=== PATIENT | female | born 1955 | race Caucasian/White ===

== ENCOUNTER 2017-09-21 09:27 | Day surgery (SDC) | payer BC ==
[2017-09-16 10:22] VITALS: BMI 33.4
--- NOTE | 2017-09-21 08:57 | P.GSHP ---
History of Present Illness H&P Date: 09/21/17 CHIEF COMPLAINT: GERD HISTORY OF PRESENT ILLNESS: The patient is a 62-year-old female who presents reports gastroesophageal reflux disease. Upper endoscopy was offered for further evaluation and management. PAST MEDICAL HISTORY: Please see list. PAST SURGICAL HISTORY: Please see list. MEDICATIONS: Please see list. ALLERGIES: Please see list. SOCIAL HISTORY: No illicit drug use FAMILY HISTORY: No reports of Crohn disease or ulcerative colitis. REVIEW OF ORGAN SYSTEMS: CONSTITUTIONAL: No reports of fevers or chills. GI: Denies any blood in stools or constipation. PHYSICAL EXAM: VITAL SIGNS: Stable GENERAL: Well-developed and pleasant in no acute distress. HEENT: No scleral icterus. Extraocular movements grossly intact. Moist buccal mucosa. NECK: Supple without lymphadenopathy. CHEST: Unlabored respirations. Equal bilateral excursions. CARDIOVASCULAR: Regular rate and rhythm. Distal 2+ pulses. ABDOMEN: Soft, nondistended. MUSCULOSKELETAL: No clubbing, cyanosis, or edema. ASSESSMENT: 1. Gastroesophageal reflux disease PLAN: 1. Recommend proceeding with an upper endoscopy Past Medical History Past Medical History: Cancer, Diabetes Mellitus, GERD/Reflux, Myocardial Infarction ([place]), Osteoarthritis (OA), Thyroid Disorder Additional Past Medical History / Comment(s): hx RIght kidney cancer,hx cancerous polyps in colon, Kidney stones , enlarged heart, abdominal pain and nausea, diverticulosis, hx pancreatitis, hypoglycemia, Last Myocardial Infarction Date:: 2005 History of Any Multi-Drug Resistant Organisms: MRSA Date of last positivie culture/infection: 04/12/2015 MDRO Source:: Right Thigh Past Surgical History: Adenoidectomy, Appendectomy, Bariatric Surgery, Cholecystectomy, Hernia Repair, Hysterectomy, Joint Replacement, Tonsillectomy Additional Past Surgical History / Comment(s): partial right kidney removed 2011 , hernia x 3, Bilateral knee replacement, left hip replacement, gastric bypass, kyree carpal tunnel, kidney stone removed from left kidney Past Anesthesia/Blood Transfusion Reactions: Motion Sickness Smoking Status: Former smoker - Past Family History Son(s) Family Medical History: Cancer Sister(s) Family Medical History: Cancer, Deep Vein Thrombosis (DVT) Mother Family Medical History: Congestive Heart Failure (CHF), Diabetes Mellitus, Rheumatoid Arthritis (RA) Additional Family Medical History / Comment(s): bilateral knee replacements, back surgery, Medications and Allergies Home Medications Medication Instructions Recorded Confirmed Type Levothyroxine Sodium [Synthroid] 200 mcg PO DAILY 04/12/15 09/16/17 History Allergies Allergy/AdvReac Type Severity Reaction Status Date / Time adhesive tape Allergy blisters Verified 09/16/17 10:08 Iodine and Iodide Containing Allergy Anaphylaxis Verified 09/16/17 10:06 Produc shellfish derived [Shellfish] Allergy Anaphylaxis Verified 09/16/17 10:06 soy Allergy severe Verified 09/16/17 10:07 headache,"can't function" Fish Containing Products AdvReac headache Verified 09/16/17 10:06 magnesium AdvReac Headache Verified 09/16/17 10:06 Penicillins AdvReac Nausea & Verified 09/16/17 10:06 Vomiting & Diarrhea bandaid Allergy blisters Uncoded 09/16/17 10:07 multivitamins AdvReac headache Uncoded 09/16/17 10:06
[~2017-09-21 09:27] MED LIST: LACTATED RINGERS 1,000 ML IV SCH; LIDOCAINE 1% 20 ML VIAL (10MG/ML) FOR IV START INTRADERMA PRN
[2017-09-21 10:49] VITALS: TEMP 97.3
[2017-09-21 11:04] LABS: Glucose,Whole Blood 89 mg/dL (75-99)
[2017-09-21] MEDS ORDERED: LIDOCAINE 1% INJ 10MG/ML (20 ML MDV) ONE (11:13)
[2017-09-21] MEDS ORDERED: GLYCOPYRROLATE 0.2 MG/ML 2 ML VIAL ONE (11:13)
[2017-09-21] MEDS ORDERED: PROPOFOL 10 MG/ML 20 ML VIAL IV ONE (11:13)
--- NOTE | 2017-09-21 11:35 | P.GSHP ---
History of Present Illness H&P Date: 09/21/17 PREOPERATIVE DIAGNOSIS: Gastroesophageal reflux disease. POSTOPERATIVE DIAGNOSIS: Gastroesophageal reflux disease. OPERATION: Esophagogastroduodenoscopy with biopsies along antrum. SURGEON: Shama Taveras MD ANESTHESIA: MAC. INDICATIONS: The patient is a 62-year-old female who presents with a history of reflux disease. Benefits and risks of the procedure were described. Informed consent was obtained. DESCRIPTION: The patient was brought into the endoscopy suite and laid in the left lateral decubitus position. An Olympus gastroscope was passed along the posterior oropharynx down to the distal esophagus where the squamocolumnar junction was encountered at 38 cm from the incisors. The stomach was entered and no bile reflux was found. Additional findings are listed below. Biopsies with cold forceps were obtained of the antrum. The first through third portion of the duodenum was examined and unremarkable. Retroflexion of the scope confirmed Hill grade 2 lower esophageal valve. The squamocolumnar junction demostrated LA grade B erosive esophagitis. The stomach was desufflated. The patient tolerated the procedure well. FINDINGS: Squamocolumnar junction 38 cm from the incisors. Diaphragmatic hiatus at 38 cm. Hill grade 2 lower esophageal valve. LA grade B erosive esophagitis. No active duodenitis. Mild gastritis. RECOMMENDATIONS: Further recommendations pending results of pathology report. Upper endoscopy as needed. Past Medical History Past Medical History: Cancer, Diabetes Mellitus, GERD/Reflux, Myocardial Infarction ([place]), Osteoarthritis (OA), Thyroid Disorder Additional Past Medical History / Comment(s): hx RIght kidney cancer,hx cancerous polyps in colon, Kidney stones , enlarged heart, abdominal pain and nausea, diverticulosis, hx pancreatitis, hypoglycemia, Last Myocardial Infarction Date:: 2005 History of Any Multi-Drug Resistant Organisms: MRSA Date of last positivie culture/infection: 04/12/2015 MDRO Source:: Right Thigh Past Surgical History: Adenoidectomy, Appendectomy, Bariatric Surgery, Cholecystectomy, Hernia Repair, Hysterectomy, Joint Replacement, Tonsillectomy Additional Past Surgical History / Comment(s): partial right kidney removed 2011 , hernia x 3, Bilateral knee replacement, left hip replacement, gastric bypass, kyree carpal tunnel, kidney stone removed from left kidney Past Anesthesia/Blood Transfusion Reactions: Motion Sickness Smoking Status: Former smoker - Past Family History Son(s) Family Medical History: Cancer Sister(s) Family Medical History: Cancer, Deep Vein Thrombosis (DVT) Mother Family Medical History: Congestive Heart Failure (CHF), Diabetes Mellitus, Rheumatoid Arthritis (RA) Additional Family Medical History / Comment(s): bilateral knee replacements, back surgery, Medications and Allergies Home Medications Medication Instructions Recorded Confirmed Type Levothyroxine Sodium [Synthroid] 200 mcg PO DAILY 04/12/15 09/16/17 History Allergies Allergy/AdvReac Type Severity Reaction Status Date / Time adhesive tape Allergy blisters Verified 09/21/17 10:37 Iodine and Iodide Containing Allergy Anaphylaxis Verified 09/21/17 10:37 Produc shellfish derived [Shellfish] Allergy Anaphylaxis Verified 09/21/17 10:37 soy Allergy severe Verified 09/21/17 10:37 headache,"can't function" Fish Containing Products AdvReac headache Verified 09/21/17 10:37 magnesium AdvReac Headache Verified 09/21/17 10:37 Penicillins AdvReac Nausea & Verified 09/21/17 10:37 Vomiting & Diarrhea bandaid Allergy blisters Uncoded 09/21/17 10:37 multivitamins AdvReac headache Uncoded 09/21/17 10:37 Surgical - Exam Vital Signs Temp Pulse Resp BP Pulse Ox 97.3 F L 69 16 163/81 99 09/21/17 10:47 09/21/17 10:47 09/21/17 10:47 09/21/17 10:47 09/21/17 10:47
[2017-09-21 11:48] VITALS: BP 157/79; PULSE 69; RESP 16
== END 2017-09-21 11:56 | disposition home or self-care (01) ==
LOC: ORWHC2ENDO 09:27
PROVIDERS: ATTEND Surgery Plastic and Reconstructive Surgery
DX: K22.10 Ulcer of esophagus without bleeding (principal); K29.50 Unspecified chronic gastritis without bleeding; E07.9 Disorder of thyroid, unspecified; Z85.038 Personal history of other malignant neoplasm of large intestine; Z87.442 Personal history of urinary calculi; Z87.891 Personal history of nicotine dependence; Z85.528 Personal history of other malignant neoplasm of kidney; Z98.84 Bariatric surgery status; M19.90 Unspecified osteoarthritis, unspecified site; I25.2 Old myocardial infarction; Z79.899 Other long term (current) drug therapy; Z91.041 Radiographic dye allergy status; Z88.0 Allergy status to penicillin; Z91.013 Allergy to seafood; Z91.09 Other allergy status, other than to drugs and biological substances
CPT/HCPCS: 88305; 88342; 43239; J2001; J2704

== ENCOUNTER 2019-01-25 17:01 | Observation (INO) | payer BC, MEDICARE ==
[2019-01-25] MEDS ORDERED: NITROGLYCERIN OINT 1 INCH/GM PACKET TOPICAL STA (17:30)
[2019-01-25] MEDS ORDERED: ASPIRIN 81 MG PO STA (17:30)
--- NOTE | 2019-01-25 17:33 | ED ---
General Adult HPI - General Chief complaint: Chest Pain Stated complaint: chest pain Time Seen by Provider: 01/25/19 17:05 Source: patient, RN notes reviewed Mode of arrival: ambulatory Limitations: no limitations - History of Present Illness Initial comments: This is a 63-year-old female presents emergency room stating she had a heart attack in the past. Patient states she comes in today because she's had chest pain since chest area radiates into her back and down her left arm. Patient states also is made her very short of breath and nauseated at times. Patient states currently the chest pain is ongoing she states nothing makes it better or worse.. Patient denies any recent fever chills or cough. Patient denies any swelling to legs or calf tenderness. Patient denies any abdominal pain patient denies nausea vomiting diarrhea. - Related Data Home Medications Medication Instructions Recorded Confirmed Levothyroxine Sodium [Synthroid] 200 mcg PO DAILY 04/12/15 01/25/19 Aspirin 81 mg PO DAILY 01/25/19 01/25/19 Multivitamins, Thera [Multivitamin 1 tab PO DAILY 01/25/19 01/25/19 (formulary)] Allergies Allergy/AdvReac Type Severity Reaction Status Date / Time adhesive tape Allergy blisters Verified 01/25/19 17:18 Iodine and Iodide Containing Allergy Anaphylaxis Verified 01/25/19 17:18 Produc shellfish derived [Shellfish] Allergy Anaphylaxis Verified 01/25/19 17:18 soy Allergy severe Verified 01/25/19 17:18 headache,"can't function" Fish Containing Products AdvReac headache Verified 01/25/19 17:18 magnesium AdvReac Headache Verified 01/25/19 17:18 Penicillins AdvReac Nausea & Verified 01/25/19 17:18 Vomiting & Diarrhea bandaid Allergy blisters Uncoded 01/25/19 17:05 multivitamins AdvReac headache Uncoded 01/25/19 17:05 Review of Systems ROS Statement: Those systems with pertinent positive or pertinent negative responses have been documented in the HPI. ROS Other: All systems not noted in ROS Statement are negative. Past Medical History Past Medical History: Cancer, Diabetes Mellitus, GERD/Reflux, Myocardial Infarction ([place]), Osteoarthritis (OA), Thyroid Disorder Additional Past Medical History / Comment(s): hx RIght kidney cancer,hx cancerous polyps in colon, Kidney stones , enlarged heart, diverticulosis, hx pancreatitis,hypoglycemia Last Myocardial Infarction Date:: 2005 History of Any Multi-Drug Resistant Organisms: MRSA Date of last positivie culture/infection: 04/12/2015 MDRO Source:: Right Thigh Past Surgical History: Adenoidectomy, Appendectomy, Bariatric Surgery, Cholecystectomy, Hernia Repair, Hysterectomy, Joint Replacement, Tonsillectomy Additional Past Surgical History / Comment(s): partial right kidney removed 2011, hernia x 3, Bilateral knee replacement, left hip replacement, gastric bypass, kyree carpal tunnel, kidney stone removed from left kidney Past Anesthesia/Blood Transfusion Reactions: Motion Sickness Past Psychological History: No Psychological Hx Reported Smoking Status: Former smoker Past Alcohol Use History: None Reported Past Drug Use History: None Reported - Past Family History Son(s) Family Medical History: Cancer Sister(s) Family Medical History: Cancer, Deep Vein Thrombosis (DVT) Mother Family Medical History: Congestive Heart Failure (CHF), Diabetes Mellitus, Rheumatoid Arthritis (RA) Additional Family Medical History / Comment(s): bilateral knee replacements, back surgery, General Exam - General Exam Comments Initial Comments: GENERAL: Patient is well-developed and well-nourished. Patient is nontoxic and well- hydrated and is in mild distress. ENT: Neck is soft and supple. No significant lymphadenopathy is noted. Oropharynx is clear. Moist mucous membranes. Neck has full range of motion without eliciting any pain. EYES: The sclera were anicteric and conjunctiva were pink and moist. Extraocular mo vements were intact and pupils were equal round and reactive to light. Eyelids were unremarkable. PULMONARY: Unlabored respirations. Good breath sounds bilaterally. No audible rales rhonchi or wheezing was noted. CARDIOVASCULAR: There is a regular rate and rhythm without any murmurs gallops or rubs. ABDOMEN: Soft and nontender with normal bowel sounds. No palpable organomegaly was noted. There is no palpable pulsatile mass. SKIN: Skin is clear with no lesions or rashes and otherwise unremarkable. NEUROLOGIC: Patient is alert and oriented x3. Cranial nerves II through XII are grossly intact. Motor and sensory are also intact. Normal speech, volume and content. Symmetrical smile. MUSCULOSKELETAL: Normal extremities with adequate strength and full range of motion. No lower ex tremity swelling or edema. No calf tenderness. LYMPHATICS: No significant lymphadenopathy is noted PSYCHIATRIC: Normal psychiatric evaluation. Limitations: no limitations Course Vital Signs 01/25/19 17:02 Temperature 98.4 F Pulse Rate 83 Respiratory 16 Rate Blood Pressure 138/70 O2 Sat by Pulse 99 Oximetry Medical Decision Making - Medical Decision Making EKG shows normal sinus rhythm at 75 bpm AL interval is 170 QRS is under 10 Q-T intervals 398 QTC is 444. Patient's EKG shows no ST segment elevation or depression. Chest x-ray shows no acute abnormality. I spoke with some physicians agreed to admit the patient admitted the patient I consult cardiology I wrote admitting orders. - Lab Data Result diagrams: 01/25/19 17:45 01/25/19 17:45 Lab Results 01/25/19 01/25/19 01/25/19 Range/Units 17:45 17:45 17:45 WBC 7.7 (3.8-10.6) k/uL RBC 4.48 (3.80-5.40) m/uL Hgb 12.8 (11.4-16.0) gm/dL Hct 39.1 (34.0-46.0) % MCV 87.3 (80.0-100.0) fL MCH 28.5 (25.0-35.0) pg MCHC 32.6 (31.0-37.0) g/dL RDW 13.3 (11.5-15.5) % Plt Count 297 (150-450) k/uL Neutrophils % 64 % Lymphocytes % 28 % Monocytes % 5 % Eosinophils % 2 % Basophils % 0 % Neutrophils # 4.9 (1.3-7.7) k/uL Lymphocytes # 2.1 (1.0-4.8) k/uL Monocytes # 0.4 (0-1.0) k/uL Eosinophils # 0.2 (0-0.7) k/uL Basophils # 0.0 (0-0.2) k/uL PT 9.5 (9.0-12.0) sec INR 0.9 (<1.2) APTT 22.5 (22.0-30.0) sec Sodium 140 (137-145) mmol/L Potassium 3.9 (3.5-5.1) mmol/L Chloride 109 H (98-107) mmol/L Carbon Dioxide 25 (22-30) mmol/L Anion Gap 6 mmol/L BUN 18 H (7-17) mg/dL Creatinine 0.63 (0.52-1.04) mg/dL Est GFR (CKD-EPI)AfAm >90 (>60 ml/min/1.73 sqM) Est GFR (CKD-EPI)NonAf >90 (>60 ml/min/1.73 sqM) Glucose 105 H (74-99) mg/dL Calcium 9.6 (8.4-10.2) mg/dL Magnesium 1.7 (1.6-2.3) mg/dL Total Bilirubin 0.3 (0.2-1.3) mg/dL AST 18 (14-36) U/L ALT 32 (9-52) U/L Alkaline Phosphatase 79 (38-126) U/L Troponin I (0.000-0.034) ng/mL Total Protein 6.4 (6.3-8.2) g/dL Albumin 3.8 (3.5-5.0) g/dL 01/25/19 Range/Units 17:45 WBC (3.8-10.6) k/uL RBC (3.80-5.40) m/uL Hgb (11.4-16.0) gm/dL Hct (34.0-46.0) % MCV (80.0-100.0) fL MCH (25.0-35.0) pg MCHC (31.0-37.0) g/dL RDW (11.5-15.5) % Plt Count (150-450) k/uL Neutrophils % % Lymphocytes % % Monocytes % % Eosinophils % % Basophils % % Neutrophils # (1.3-7.7) k/uL Lymphocytes # (1.0-4.8) k/uL Monocytes # (0-1.0) k/uL Eosinophils # (0-0.7) k/uL Basophils # (0-0.2) k/uL PT (9.0-12.0) sec INR (<1.2) APTT (22.0-30.0) sec Sodium (137-145) mmol/L Potassium (3.5-5.1) mmol/L Chloride (98-107) mmol/L Carbon Dioxide (22-30) mmol/L Anion Gap mmol/L BUN (7-17) mg/dL Creatinine (0.52-1.04) mg/dL Est GFR (CKD-EPI)AfAm (>60 ml/min/1.73 sqM) Est GFR (CKD-EPI)NonAf (>60 ml/min/1.73 sqM) Glucose (74-99) mg/dL Calcium (8.4-10.2) mg/dL Magnesium (1.6-2.3) mg/dL Total Bilirubin (0.2-1.3) mg/dL AST (14-36) U/L ALT (9-52) U/L Alkaline Phosphatase (38-126) U/L Troponin I <0.012 (0.000-0.034) ng/mL Total Protein (6.3-8.2) g/dL Albumin (3.5-5.0) g/dL Disposition Clinical Impression: Chest pain Disposition: ADMITTED IP TO THIS HOSP Referrals: Jovanny Leonard MD [Primary Care Provider] - 1-2 days Time of Disposition: 18:28
[2019-01-25 18:05] LABS: INR 0.9 (<1.2); Partial Thromboplastin Time 22.5 sec (22.0-30.0); Prothrombin Time 9.5 sec (9.0-12.0)
[2019-01-25 18:07] LABS: ALT 32 U/L (9-52); AST 18 U/L (14-36); Albumin 3.8 g/dL (3.5-5.0); Alkaline Phosphatase 79 U/L (38-126); Anion Gap 6 mmol/L; Blood Urea Nitrogen 18 mg/dL (7-17); Calcium 9.6 mg/dL (8.4-10.2); Carbon Dioxide 25 mmol/L (22-30); Chloride 109 mmol/L (98-107); Glucose 105 mg/dL (74-99); Magnesium 1.7 mg/dL (1.6-2.3); Potassium 3.9 mmol/L (3.5-5.1); Sodium 140 mmol/L (137-145); Total Bilirubin 0.3 mg/dL (0.2-1.3); Total Protein 6.4 g/dL (6.3-8.2)
[2019-01-25 18:10] LABS: Basophils % (A) 0 %; Eosinophils # (A) 0.2 k/uL (0-0.7); Eosinophils % (A) 2 %; HCT 39.1 % (34.0-46.0); HGB 12.8 gm/dL (11.4-16.0); Lymphocytes # (A) 2.1 k/uL (1.0-4.8); Lymphocytes % (A) 28 %; MCH 28.5 pg (25.0-35.0); MCHC 32.6 g/dL (31.0-37.0); MCV 87.3 fL (80.0-100.0); Mean Platelet Volume 6.2; Monocytes # (A) 0.4 k/uL (0-1.0); Monocytes % (A) 5 %; Neutrophils # (A) 4.9 k/uL (1.3-7.7); Neutrophils % (A) 64 %; Platelet Count 297 k/uL (150-450); RBC 4.48 m/uL (3.80-5.40); RDW 13.3 % (11.5-15.5); WBC 7.7 k/uL (3.8-10.6)
--- NOTE | 2019-01-25 18:21 | XR ---
EXAMINATION TYPE: XR chest 2V DATE OF EXAM: 01/25/2019 COMPARISON: 05/05/2013 HISTORY: Chest pain TECHNIQUE: Frontal and lateral views of the chest are obtained. FINDINGS: Heart and mediastinum are normal. There is minimal linear poorly marginated density in the left lower lung field.. There are no hilar masses. Bony thorax is intact. There are chest leads. IMPRESSION: There is minimal density left lower lung field that is mostly cleared compared to old ex am. This probably relates to scarring.
[2019-01-25] MEDS ORDERED: NITROGLYCERIN SL TABS 0.4 MG TAB SUBLINGUAL PRN (18:28)
--- NOTE | 2019-01-25 21:24 | P.HPIM ---
History of Present Illness H&P Date: 01/25/19 Chief Complaint: Chest pain The patient is a 63-year-old female with a past medical history of hypothyroidism, reported prior [place] in 2005 who presents to the ER via private vehicle with her with chief complaint of chest pain. Apparently the patient has been having left sternal severe chest pressure and tightness over the last 2 days, she reports that it's worse with exertion and reports associated shortness of breath with radiation into her back and down her left arm. She reports episodes of diaphoresis and nausea and mention some lower extremity swelling. The patient reports following up with her PCP Dr. Parnell and reports that she was then referred to the ER here. The patient reports that in 2005 she was diagnosed with [place] while following up with her PCP and was sent directly to a nearby hospital where she had a cath done. The patient is unable to fully recall that she knows that she did not have any stent placement that time, and she is also unsure about whether she was noted to have any coronary artery disease. When asked about specific medications she reports a long list of ALLERGIES to medications over the years but is unable to recall specific ALLERGIES to specific medications. The patient denies any recent illness but does report that she's been following up with her PCP due to concern for CVA as she has been having focal weakness on her left side, apparently she was referred to see neurology Dr. Good who is currently planning to work her up with several studies including MRI of the head. In the ER the patient had a conference of workup, EKG showed sinus rhythm without any suggestion of an acute ischemia, troponin was less than 0.012 and chest x-ray showed no acute abnormalityShe was started on aspirin and nit roglycerin and recommended for admission to rule out ACS . Review of Systems The pertinent positives per HPI all other systems otherwise negative Past Medical History Past Medical History: Cancer, Diabetes Mellitus, GERD/Reflux, Myocardial Infarction ([place]), Osteoarthritis (OA), Thyroid Disorder Additional Past Medical History / Comment(s): hx RIght kidney cancer,hx cancerous polyps in colon, Kidney stones , enlarged heart, diverticulosis, hx pancreatitis,hypoglycemia Last Myocardial Infarction Date:: 2005 History of Any Multi-Drug Resistant Organisms: MRSA Date of last positivie culture/infection: 04/12/2015 MDRO Source:: Right Thigh Past Surgical History: Adenoidectomy, Appendectomy, Bariatric Surgery, Cholecystectomy, Hernia Repair, Hysterectomy, Joint Replacement, Tonsillectomy Additional Past Surgical History / Comment(s): partial right kidney removed 2011, hernia x 3, Bilateral knee replacement, left hip replacement, gastric bypass, kyree carpal tunnel, kidney stone removed from left kidney Past Anesthesia/Blood Transfusion Reactions: Motion Sickness Past Psychological History: No Psychological Hx Reported Smoking Status: Former smoker Past Alcohol Use History: None Reported Past Drug Use History: None Reported - Past Family History Son(s) Family Medical History: Cancer Sister(s) Family Medical History: Cancer, Deep Vein Thrombosis (DVT) Mother Family Medical History: Congestive Heart Failure (CHF), Diabetes Mellitus, Rheumatoid Arthritis (RA) Additional Family Medical History / Comment(s): bilateral knee replacements, back surgery, Medications and Allergies Home Medications Medication Instructions Recorded Confirmed Type Levothyroxine Sodium [Synthroid] 200 mcg PO DAILY 04/12/15 01/25/19 History Aspirin 81 mg PO DAILY 01/25/19 01/25/19 History Multivitamins, Thera [Multivitamin 1 tab PO DAILY 01/25/19 01/25/19 History (formulary)] Allergies Allergy/AdvReac Type Severity Reaction Status Date / Time adhesive tape Allergy blisters Verified 01/25/19 20:54 Iodine and Iodide Containing Allergy Anaphylaxis Verified 01/25/19 20:54 Produc shellfish derived [Shellfish] Allergy Anaphylaxis Verified 01/25/19 20:54 soy Allergy severe Verified 01/25/19 20:54 headache,"can't function" Fish Containing Products AdvReac headache Verified 01/25/19 20:54 magnesium AdvReac Headache Verified 01/25/19 20:54 Penicillins AdvReac Nausea & Verified 01/25/19 20:54 Vomiting & Diarrhea bandaid Allergy blisters Uncoded 01/25/19 20:54 multivitamins AdvReac headache Uncoded 01/25/19 20:54 Physical Exam Vitals: Vital Signs Temp Pulse Resp BP Pulse Ox 01/25/19 19:44 100 01/25/19 18:46 73 16 157/90 98 01/25/19 17:02 98.4 F 83 16 138/70 99 Intake and Output 01/25/19 01/25/19 01/25/19 06:59 14:59 22:59 Other: # Voids 1 Weight 77.111 kg Results CBC & Chem 7: 01/25/19 17:45 01/25/19 17:45 Labs: Abnormal Lab Results - Last 24 Hours (Table) 01/25/19 Range/Units 17:45 Chloride 109 H (98-107) mmol/L BUN 18 H (7-17) mg/dL Glucose 105 H (74-99) mg/dL Assessment and Plan (1) Chest pain Current Visit: Yes Status: Acute Code(s): R07.9 - CHEST PAIN, UNSPECIFIED SNOMED Code(s): 93245300 (2) Essential hypertension Current Visit: Yes Status: Acute Code(s): I10 - ESSENTIAL (PRIMARY) HYPERTENSION SNOMED Code(s): 79326494 (3) Hypothyroidism Current Visit: Yes Status: Acute Code(s): E03.9 - HYPOTHYROIDISM, UNSPECIFIED SNOMED Code(s): 06763781 Plan: the patient isin observation anticipated less than 2 midnight stay with chest pain, she apparently has a history of previous [place] unsure of whether she has coronary artery disease, patient's blood pressure slightly elevated, however her workup so far has been negative. Her troponin is less than 0.012 and her EKG is negative for acute ischemia, we'll plan to order echocardiogram with Doppler, cycle her troponins, check a lipid panel and consult cardiology for further recommendations. We'll add Coreg and aspirin and nitroglycerin and continue routine chest pain orders and continue to follow her clinical course CODE STATUS: Full code Discussed plan of care with; patient and her Prophylaxis: SCDs and Lovenox Anticipated discharge: 1 day
[2019-01-25] MEDS: CARVEDILOL 3.125 MG TAB PO SCH (21:45)
[2019-01-25] MEDS: HYDROcodone/APAP 5-325MG 1 EACH TAB PO PRN (21:46)
[2019-01-26] MEDS: NITROGLYCERIN OINT 1 INCH/GM PACKET TOPICAL SCH ×5 (00:08→23:36)
[2019-01-26] MEDS: LEVOTHYROXINE 100 MCG TAB PO SCH (05:24)
[2019-01-26] MEDS: HYDROcodone/APAP 5-325MG 1 EACH TAB PO PRN ×3 (05:28→19:02)
[2019-01-26 07:02] LABS: Cholesterol 152 mg/dL (<200); HDL Cholesterol 53 mg/dL (40-60); LDL Cholesterol,Calculated 48 mg/dL (0-99); Triglycerides 255 mg/dL (<150)
[2019-01-26] MEDS ORDERED: ALPRAZolam 0.25 MG TAB PO PRN (11:39)
[2019-01-26] MEDS ORDERED: SODIUM CHLORIDE 0.9% 1,000 ML in EMPTY BAG 1 BAG IV ONE (11:39)
[2019-01-26] MEDS ORDERED: ATORVASTATIN 80 MG TAB PO STA (11:39)
[2019-01-26] MEDS ORDERED: ALPRAZolam 0.5 MG TAB PO PRN (11:39)
[2019-01-26] MEDS: MULTIVITAMINS, THERA 1 EACH TAB PO SCH (12:05)
[2019-01-26] MEDS: CARVEDILOL 3.125 MG TAB PO SCH ×2 (12:06→19:01)
[2019-01-26] MEDS: ASPIRIN 325 MG TAB PO SCH (12:06)
[2019-01-26] MEDS ORDERED: diphenhydrAMINE 50 MG/ML 1 ML VIAL IVP ONE (12:44)
[2019-01-26] MEDS ORDERED: methylPREDNISolone SOD SUCCI 125 MG/2 ML VIAL IV ONE (12:44)
[2019-01-26] MEDS ORDERED: ASPIRIN 81 MG ONE (12:51)
[2019-01-26] MEDS ORDERED: methylPREDNISolone SOD SUCCI 125 MG/2 ML VIAL ONE (12:51)
[2019-01-26] MEDS ORDERED: LIDOCAINE 1% INJ 10MG/ML (20 ML MDV) ONE (12:51)
[2019-01-26] MEDS ORDERED: SODIUM CHLORIDE 0.9% 1,000 ML IV ONE (12:59)
[2019-01-26] MEDS ORDERED: fentaNYL (PF) 50 MCG/ML 2 ML AMP ONE (13:09)
[2019-01-26] MEDS ORDERED: MIDAZOLAM 2 MG/2 ML VIAL IVP ONE (13:20)
[2019-01-26] MEDS ORDERED: fentaNYL (PF) 50 MCG/ML 2 ML AMP IVP ONE (13:20)
[2019-01-26] MEDS ORDERED: LIDOCAINE 1% INJ 10MG/ML (20 ML MDV) SQ ONE (13:24)
--- NOTE | 2019-01-26 13:29 | ECHOF ---
Referral Reason:Chest pain MEASUREMENTS -------- HEIGHT: 154.9 cm WEIGHT: 77.1 kg BP: 121/69 RVIDd: 2.7 cm (< 3.3) IVSd: 1.1 cm (0.6 - 1.1) LVIDd: 4.8 cm (3.9 - 5.3) LVPWd: 1.2 cm (0.6 - 1.1) IVSs: 1.6 cm LVIDs: 3.0 cm LVPWs: 1.8 cm LA Diam: 3.4 cm (2.7 - 3.8) LAESV Index (A-L): 24.20 ml/m Ao Diam: 2.9 cm (2.0 - 3.7) AV Cusp: 1.5 cm (1.5 - 2.6) MV EXCURSION: 19.436 mm (> 18.000) MV EF SLOPE: 51 mm/s (70 - 150) EPSS: 0.4 cm MV E Imtiaz: 1.02 m/s MV DecT: 232 ms MV A Imtiaz: 1.03 m/s MV E/A Ratio: 0.99 AV maxP.00 mmHg AV meanP.42 mmHg RAP: 5.00 mmHg RVSP: 25.25 mmHg FINDINGS -------- Sinus rhythm. This was a technically good study. The left ventricular size is normal. There is borderline concentric left ventricular hypertrophy. Overall left ventricular systolic function is normal with, an EF between 60 - 65 %. The right ventricle is normal in size. Normal LA size by volume 22+/-6 ml/m2. The right atrium is normal in size. Aortic valve is trileaflet and is mildly thickened. The aortic valve is bicuspid. There is mild a ortic stenosis present. The mitral valve leaflets are mildly thickened. Mild mitral annular calcification present. There is trace mitral regurgitation. Mild tricuspid regurgitation present. Right ventricular systolic pressure is normal at < 35 mmHg. There is no pulmonic regurgitation present. The aortic root size is normal. Normal inferior vena cava with normal inspiratory collapse consistent with estimated right atrial pre ssure of 5 mmHg. There is no pericardial effusion. CONCLUSIONS -------- 1. Sinus rhythm. 2. This was a technically good study. 3. The left ventricular size is normal. 4. There is borderline concentric left ventricular hypertrophy. 5. Overall left ventricular systolic function is normal with, an EF between 60 - 65 %. 6. The right ventricle is normal in size. 7. Normal LA size by volume 22+/-6 ml/m2. 8. The right atrium is normal in size. 9. Aortic valve is trileaflet and is mildly thickened. 10. The aortic valve is bicuspid. 11. There is mild aortic stenosis present. 12. The mitral valve leaflets are mildly thickened. 13. Mild mitral annular calcification present. 14. There is trace mitral regurgitation. 15. Mild tricuspid regurgitation present. 16. Right ventricular systolic pressure is normal at < 35 mmHg. 17. There is no pulmonic regurgitation present. 18. The aortic root size is normal. 19. Normal inferior vena cava with normal inspiratory collapse consistent with estimated right atrial pressure of 5 mmHg. 20. There is no pericardial effusion. BINMAN: Fanny Evans RDCS
[2019-01-26] MEDS ORDERED: NITROGLYCERIN SL TABS 0.4 MG TAB SUBLINGUAL ONE ×2 (13:44→13:45)
[2019-01-26] MEDS ORDERED: METOPROLOL TARTRATE 5 MG/5 ML VIAL IVP ONE ×2 (13:45→13:47)
[2019-01-26] MEDS ORDERED: IOPAMIDOL-370 150ML BTL INJ ONE (13:49)
[2019-01-26] MEDS ORDERED: RX INFO: IV CONTRAST WAS GIVEN 1 EACH MISC MISCELLANE PRN (13:53)
--- NOTE | 2019-01-26 13:55 | P.CRDCN ---
History of Present Illness History of present illness: couple days of pressure and stabbing pain in the left precordial region with radiation down the left arm. sob, nausea, dizziness. This is a pleasant 63-year-old female past medical history significant for diabetes mellitus, gastroesophageal reflux disease, hypothyroidism, former nicotine dependence the patient states she suffered a myocardial infarction in [place] in 2005 undergoing cardiac catheterization but requiring no stent placement. We have been asked to see her in consultation for symptoms of chest discomfort. She describes having symptoms of chest pressure and a stabbing pain in the left precordial region intermittently over the previous couple of days not associated with activity or exertion. There is some radiation into the left shoulder and down the left arm. When she has the pain she also feels significantly short of breath, nauseated and lightheaded. She denies any palpitations. The pain is quite intense when it does come and is not associated with cough or deep inspiration. At the time of my exam she is initially seen and examined resting quite comfortably in bed in no acute distress however shelter through my examination she had an episode of acute onset of chest discomfort heavy pressure stabbing sensation in the left precordial region causing her clutch her chest. EKG reveals sinus mechanism heart rate of 75, left axis deviation, incomplete right bundle branch block as well as nonspecific ST abnormalities noted in the inferior leads. Chest x-ray reveals minimal density in the left lower lung field. Laboratory data reviewed, WBC 7.7, hemoglobin 12.8, platelets 297, sodium 140, potassium 3.9, creatinine 0.63, magnesium 1.7, cardiac enzymes negative 3, LDL 48 HDL 53. She takes no daily cardiac medications. At the time of my exam: CONSTITUTIONAL: Denies fever. Denies chills. EYES: Denies blurred vision. Denies vision changes. Denies eye pain. EARS, NOSE, MOUTH & THROAT: Denies headache. Denies sore throat. Denies ear p ain. CARDIOVASCULAR: Complains of chest pain. Denies shortness of breath. Denies orthopnea. Denies PND. Denies palpitations. RESPIRATORY: Denies cough. GASTROINTESTINAL: Denies abdominal pain. Denies diarrhea. Denies constipation. Denies nausea. Denies vomiting. MUSCULOSKELETAL: Denies myalgias. INTEGUMENTARY: Denies pruitis. Denies rash. NEUROLOGIC: Denies numbness. Denies tingling. Denies weakness. PSYCHIATRIC: Denies anxiety. Denies depression. ENDOCRINE: Denies fatigue. Denies weight change. Denies polydipsia. Denies polyurina. GENITOURINARY: Denies burning, hematuria or urgency with micturation. HEMATOLOGIC: Denies history of anemia. Denies bleeding. Blood pressure 118/69 heart rate 63 afebrile maintaining oxygen saturation on room air GENERAL: This is a 63-year-old female in no apparent distress at the time of my examination. HEENT: Head is atraumatic, normocephalic. Pupils are equal, round. Sclerae anicteric. Conjunctivae are clear. Mucous membranes of the mouth are moist. Neck is supple. There is no jugular venous distention. No carotid bruit is heard. LUNGS: Clear to auscultation no wheezes, rales or rhonchi. No chest wall tenderness is noted on palpation or with deep breathing. HEART: Regular rate and rhythm with short systolic murmur at the left sternal kylie rder, no rubs or gallops. S1 and S2 heard. ABDOMEN: Soft, nontender. Bowel sounds are heard. No organomegaly noted. EXTREMITIES: No evidence of peripheral edema and no calf tenderness noted. VASCULAR: Radial and dorsalis pedis pulses palpated, no evidence of clubbing. NEUROLOGIC: Patient is awake, alert and oriented x3. ASSESSMENT Chest pain, ongoing with baseline EKG abnormalities. An acute coronary event has been ruled out with negative cardiac enzymes. Hypothyroidism Former nicotine dependence Obesity, BMI 32 PLAN Obtain 2-D echocardiogram and Doppler study to assess cardiac structure and function. Due to her ongoing active chest discomfort and EKG abnormalities recommend proceeding with cardiac catheterization to further assess the coronary arteries. I have discussed the risks, benefits and alternative therapies for the above- mentioned procedure and for both sedation/analgesia as well as necessary blood product administration, if indicated, as they pertain to this patient. The patient has indicated understanding and acceptance of the risks and procedures discussed. Questions have been answered appropriately and she is agreeable to move forward with the above-stated procedure. Further recommendations to follow based upon clinical course. Thank you kindly for this consultation. Nurse Practitioner note has been reviewed, I agree with a documented findings and plan of care. Patient was seen and examined. Past Medical History Past Medical History: Cancer, Diabetes Mellitus, GERD/Reflux, Myocardial Infarction ([place]), Osteoarthritis (OA), Thyroid Disorder Additional Past Medical History / Comment(s): hx RIght kidney cancer,hx cancerous polyps in colon, Kidney stones , enlarged heart, diverticulosis, hx pancreatitis,hypoglycemia Last Myocardial Infarction Date:: 2005 History of Any Multi-Drug Resistant Organisms: MRSA Date of last positivie culture/infection: 04/12/2015 MDRO Source:: Right Thigh Past Surgical History: Adenoidectomy, Appendectomy, Bariatric Surgery, Cholec ystectomy, Hernia Repair, Hysterectomy, Joint Replacement, Tonsillectomy Additional Past Surgical History / Comment(s): partial right kidney removed 2011, hernia x 3, Bilateral knee replacement, left hip replacement, gastric bypass, kyree carpal tunnel, kidney stone removed from left kidney Past Anesthesia/Blood Transfusion Reactions: Motion Sickness Past Psychological History: No Psychological Hx Reported Smoking Status: Former smoker Past Alcohol Use History: None Reported Past Drug Use History: None Reported - Past Family History Son(s) Family Medical History: Cancer Sister(s) Family Medical History: Cancer, Deep Vein Thrombosis (DVT) Mother Family Medical History: Congestive Heart Failure (CHF), Diabetes Mellitus, Rheumatoid Arthritis (RA) Additional Family Medical History / Comment(s): bilateral knee replacements, back surgery, Medications and Allergies Home Medications Medication Instructions Recorded Confirmed Type Levothyroxine Sodium [Synthroid] 200 mcg PO DAILY 04/12/15 01/25/19 History Aspirin 81 mg PO DAILY 01/25/19 01/25/19 History Multivitamins, Thera [Multivitamin 1 tab PO DAILY 01/25/19 01/25/19 History (formulary)] Allergies Allergy/AdvReac Type Severity Reaction Status Date / Time adhesive tape Allergy blisters Verified 01/25/19 20:54 Iodine and Iodide Containing Allergy Anaphylaxis Verified 01/25/19 20:54 Produc shellfish derived [Shellfish] Allergy Anaphylaxis Verified 01/25/19 20:54 soy Allergy severe Verified 01/25/19 20:54 headache,"can't function" Fish Containing Products AdvReac headache Verified 01/25/19 20:54 magnesium AdvReac Headache Verified 01/25/19 20:54 Penicillins AdvReac Nausea & Verified 01/25/19 20:54 Vomiting & Diarrhea bandaid Allergy blisters Uncoded 01/25/19 20:54 multivitamins AdvReac headache Uncoded 01/25/19 20:54 Physical Exam Vitals: Vital Signs Temp Pulse Pulse Resp BP BP Pulse Ox 01/26/19 07:20 97.8 F 63 18 118/69 97 01/26/19 03:49 98.3 F 70 16 121/69 99 01/26/19 03:21 16 01/25/19 23:58 16 01/25/19 23:24 98.2 F 75 16 123/69 96 01/25/19 20:00 98.4 F 74 16 147/73 98 01/25/19 19:44 100 01/25/19 18:46 73 16 157/90 98 01/25/19 17:02 98.4 F 83 16 138/70 99 Intake and Output 01/25/19 01/26/19 01/26/19 22:59 06:59 14:59 Other: # Voids 1 1 Weight 77.111 kg Results 01/25/19 17:45 01/25/19 17:45 Cardiac Enzymes 01/25/19 01/25/19 01/25/19 Range/Units 17:45 17:45 23:41 AST 18 (14-36) U/L Troponin I <0.012 0.014 (0.000-0.034) ng/mL 01/26/19 Range/Units 05:35 AST (14-36) U/L Troponin I <0.012 (0.000-0.034) ng/mL Coagulation 01/25/19 Range/Units 17:45 PT 9.5 (9.0-12.0) sec APTT 22.5 (22.0-30.0) sec Lipids 01/26/19 Range/Units 05:35 Triglycerides 255 H (<150) mg/dL Cholesterol 152 (<200) mg/dL HDL Cholesterol 53 (40-60) mg/dL CBC 01/25/19 Range/Units 17:45 WBC 7.7 (3.8-10.6) k/uL RBC 4.48 (3.80-5.40) m/uL Hgb 12.8 (11.4-16.0) gm/dL Hct 39.1 (34.0-46.0) % Plt Count 297 (150-450) k/uL Comprehensive Metabolic Panel 01/25/19 Range/Units 17:45 Sodium 140 (137-145) mmol/L Potassium 3.9 (3.5-5.1) mmol/L Chloride 109 H (98-107) mmol/L Carbon Dioxide 25 (22-30) mmol/L BUN 18 H (7-17) mg/dL Creatinine 0.63 (0.52-1.04) mg/dL Glucose 105 H (74-99) mg/dL Calcium 9.6 (8.4-10.2) mg/dL AST 18 (14-36) U/L ALT 32 (9-52) U/L Alkaline Phosphatase 79 (38-126) U/L Total Protein 6.4 (6.3-8.2) g/dL Albumin 3.8 (3.5-5.0) g/dL Current Medications Generic Name Dose Route Start Last Admin Trade Name Freq PRN Reason Stop Dose Admin Hydrocodone Bitart/Acetaminophen 1 each 01/25/19 21:11 01/26/19 05:28 [place] 5-325 PO 1 each Q6HR PRN Administration Pain Aspirin 325 mg 01/26/19 09:00 Aspirin PO DAILY [facility] Carvedilol 3.125 mg 01/25/19 21:15 01/25/19 21:45 Coreg PO Not Given BID-W/MEALS [facility] Levothyroxine Sodium 200 mcg 01/26/19 06:30 01/26/19 05:24 Synthroid PO 200 mcg DAILY@0630 [facility] Administration Multivitamins 1 each 01/26/19 12:00 Theragran PO DAILY@1200 [facility] Nitroglycerin 1 inch 01/26/19 00:00 01/26/19 04:59 Nitro-Bid Oint TOPICAL Not Given Q6HR [facility] Nitroglycerin 0.4 mg 01/25/19 18:28 Nitrostat SUBLINGUAL Q5M PRN Chest Pain Intake and Output 01/25/19 01/26/19 01/26/19 22:59 06:59 14:59 Other: # Voids 1 1 Weight 77.111 kg 01/25/19 17:45 01/25/19 17:45
--- NOTE | 2019-01-26 14:17 | CC ---
CARDIAC CATHETERIZATION REPORT Mrs. Matos is a 63-year-old female who was admitted to the hospital with recurrent chest pain. The pain was in the left precordial area radiating to the left arm. Patient had a couple of episodes of moderate to severe chest pain while in the observation unit. EKG and cardiac enzymes were normal. In view of the recurrent significant resting pain, the patient was recommended to have a cardiac catheterization for definite diagnosis. PROCEDURE: The right groin was prepped and draped in the usual manner and the skin was infiltrated with 2% Xylocaine. The right femoral artery was entered using Seldinger technique and #6-Hungarian sheath was placed in. Selective coronary angiography was then performed in multiple projections and the left ventricular pressures were obtained. Patient tolerated the procedure well. HEMODYNAMICS: Left ventricular end-diastolic pressure is 14 to 16 mmHg prior to angiography. No gradient is noted across the aortic valve. SELECTIVE CORONARY ANGIOGRAPHY: Main coronary artery is normal and patent. LAD is a good caliber blood vessel and gives rise to diagonal branch. LAD and its branches are normal. Circumflex coronary artery is normal in size. It gives rise to good-sized PLV branch. Circumflex coronary artery and its branches are normal. Right coronary artery is a normal caliber blood vessels, gives rise to small size PDA and PLV branch codominant in distribution and right coronary artery is normal. FINAL IMPRESSION: This study reveals normal coronary arteries. Left ventricular end-diastolic pressure is normal. RECOMMENDATIONS: Medical treatment. MMODL / IJN: [id number] /
--- NOTE | 2019-01-26 14:53 | P.DS ---
Providers Date of admission: 01/25/19 18:30 Expected date of discharge: 01/26/19 Attending physician: Rafa Raymundo MD Consults: 01/25/19 18:30 Consult Physician Urgent Consulting Provider: [facility] Consult Reason/Comments: Chest pain Do you want consulting provider notified?: Yes Primary care physician: [facility] Hospital Course: The patient is a 63-year-old female with a PMH of hypothyroid rhythm, reported prior [place], who presented to the ED for chest pain ongoing for the previous 2 days. The patient underwent a comprehensive workup in the ED, with troponins negative 3, chest x-ray unremarkable, and EKG showing no acute ischemic changes. The patient was placed in observation status and was evaluated by cardiology who recommended a cardiac catheterization along with an echocardiogram. Cardiac catheterization revealed normal coronaries while echocardiogram revealed borderline concentric LVH along with an LV systolic ejection fraction of 60-65%. The patient was subsequently cleared for discharge to home. Physical Examination General: Non-toxic, in no acute distress, appears stated age, normal weight HEENT: NC/AT, anicteric sclerae, moist conjunctiva, no lid-lag, PERRLA Cardiovascular: S1/S2 wnl, no murmurs, rubs, or gallops Lungs: Clear to auscultation, normal respiratory effort, no accessory muscle use Abdominal: Soft, non-tender, non-distended, no guarding, rebound, or rigidity Skin: Warm, dry Extremities: No edema or contractures Psychiatric: Alert and oriented to person, place and time, appropriate affect Neuro: CN II-XII grossly intact, Strength 5/5 in all 4 extremities, Speech intact, Sensation to light touch grossly intact throughout Discharge diagnosis: Atypical chest pain, hypertension, hypothyroid A total of 45 minutes of time were spent preparing this complex discharge summary. Pertinent Studies: As per HPI Procedures: As per HPI Patient Condition at Discharge: Good Plan - Discharge Summary New Discharge Prescriptions: Continue Levothyroxine Sodium [Synthroid] 200 mcg PO DAILY Multivitamins, Thera [Multivitamin (formulary)] 1 tab PO DAILY Aspirin 81 mg PO DAILY Discharge Medication List Levothyroxine Sodium [Synthroid] 200 mcg PO DAILY 04/12/15 [History] Aspirin 81 mg PO DAILY 01/25/19 [History] Multivitamins, Thera [Multivitamin (formulary)] 1 tab PO DAILY 01/25/19 [History] Follow up Appointment(s)/Referral(s): Jovanny Leonard MD [Primary Care Provider] - 1-2 days Claudine Moctezuma MD [STAFF PHYSICIAN] - 1 Week Discharge Disposition: HOME SELF-CARE
[2019-01-27] MEDS: HYDROcodone/APAP 5-325MG 1 EACH TAB PO PRN ×2 (00:37→06:42)
[2019-01-27] MEDS: NITROGLYCERIN OINT 1 INCH/GM PACKET TOPICAL SCH ×3 (06:33→13:44)
[2019-01-27] MEDS: CARVEDILOL 3.125 MG TAB PO SCH ×2 (06:37→13:44)
[2019-01-27] MEDS: LEVOTHYROXINE 100 MCG TAB PO SCH (06:37)
[2019-01-27] MEDS: ASPIRIN 325 MG TAB PO SCH (09:43)
[2019-01-27 11:09] VITALS: BP 132/68; PULSE 72; RESP 17; TEMP 97.8
[2019-01-27] MEDS: MULTIVITAMINS, THERA 1 EACH TAB PO SCH (11:22)
--- NOTE | 2019-01-27 16:59 | PN ---
PROGRESS NOTE This is a lady who was seen by Dr. Kailey Moctezuma yesterday, underwent a cardiac cath which revealed no significant CAD. Her right femoral cath site is clean and dry with a good pulse. Vital signs are stable. S1, S2 heard normally. Lungs are clear. Abdomen and lower extremity exam unchanged. Plan is to continue current medications. The patient does not have any obstructive CAD. She can be discharged and see Dr. Kailey Moctezuma in about a week or so. MMODL / IJN: [id number] /
== END 2019-01-27 13:46 | disposition home or self-care (01) ==
LOC: EC 17:01 → 1SOBS 18:30 → 3SCARD 01-26 19:41
PROVIDERS: ADMIT Family Medicine; ATTEND Family Medicine
DX: R07.2 Precordial pain (principal); R06.02 Shortness of breath; R11.0 Nausea; R94.31 Abnormal electrocardiogram [ECG] [EKG]; M79.89 Other specified soft tissue disorders; I25.2 Old myocardial infarction; R42 Dizziness and giddiness; R61 Generalized hyperhidrosis; E03.9 Hypothyroidism, unspecified; I11.9 Hypertensive heart disease without heart failure; Z79.890 Hormone replacement therapy; E66.9 Obesity, unspecified; Z68.32 Body mass index [BMI] 32.0-32.9, adult; Z79.82 Long term (current) use of aspirin; Z88.0 Allergy status to penicillin; Z91.013 Allergy to seafood; Z88.8 Allergy status to other drugs, medicaments and biological substances; Z91.018 Allergy to other foods; Z91.048 Other nonmedicinal substance allergy status; Z85.528 Personal history of other malignant neoplasm of kidney; Z85.038 Personal history of other malignant neoplasm of large intestine; Z87.891 Personal history of nicotine dependence; Z87.442 Personal history of urinary calculi; Z86.14 Personal history of Methicillin resistant Staphylococcus aureus infection; Z90.49 Acquired absence of other specified parts of digestive tract; Z98.84 Bariatric surgery status; Z90.5 Acquired absence of kidney; Z83.2 Family history of diseases of the blood and blood-forming organs and certain disorders involving the immune mechanism; Z82.61 Family history of arthritis; Z82.49 Family history of ischemic heart disease and other diseases of the circulatory system; Z83.3 Family history of diabetes mellitus
CPT/HCPCS: 99285; 36415; 93005; 93306; 93458; 80061; 80053; 83735; 84484 ×2; 85025; 85610; 85730; 71046; G0378 ×3; C1760; C1894; C1769 ×2; J2250; J1200; J2930; J2001; J3010; Q9967

== ENCOUNTER → 2019-10-02 | Outpatient (CLI) | payer MEDICARE ==
--- NOTE | 2019-10-02 10:33 | CT ---
EXAMINATION TYPE: CT hip LT wo con DATE OF EXAM: 10/02/2019 COMPARISON: None HISTORY: 64-year-old female with left hip pain TECHNIQUE: Contiguous axial scanning of the left hip without IV contrast. Coronal and sagittal recons tructions performed. 3-D reconstructions generated on a dedicated independent workstation. CT DLP: 519 mGycm Automated exposure control for dose reduction was used. FINDINGS: There is some linear hyperdensity along the midline abdominal wall musculature, partially visualized, possibly some type of mesh repair. Degenerative changes with vacuum involving the left SI joint. Left hip arthroplasty is demonstrated. Both acetabular cup and femoral stem components of the prosthe sis are well seated without periprosthetic fracture. Alignment grossly anatomic. Allowing for the metal artifacts, no obvious periarticular fluid collections are seen. No atrophy of the gluteal musculature. No periprosthetic fracture identified. IMPRESSION: ALLOWING FOR PROMINENT METAL HARDWARE ARTIFACT, THE LEFT HIP TOTAL ARTHROPLASTY APPEARS UNCOMPLICATED . NO LOOSENING OR PERIPROSTHETIC FRACTURE IS IDENTIFIED.
== END | disposition home or self-care (01) ==
LOC: RADCTMAIN 09:23
PROVIDERS: ATTEND Psychiatry & Neurology Neurology
DX: M25.552 Pain in left hip (principal); Z96.642 Presence of left artificial hip joint

== ENCOUNTER → 2019-11-14 | Outpatient (CLI) | payer MEDICARE ==
--- NOTE | 2019-11-14 16:29 | CT ---
EXAMINATION TYPE: CT abdomen pelvis wo con DATE OF EXAM: 11/14/2019 COMPARISON: None HISTORY: 64-year-old female right flank pain. History of renal ca. CT DLP: 554.3 mGycm. Automated exposure control for dose reduction was used. TECHNIQUE: Contiguous axial scanning of the abdomen and pelvis without IV contrast. Coronal and sagit kirt reconstructions performed. FINDINGS: Heart normal size without pericardial effusion. Lung bases clear without pleural effusion. The duodenum appears thickened or distended measuring up to 4.9 cm, referred to coronal image 42. Noncontrast appearance of the liver, adrenal glands, spleen with hilar splenule, pancreas show no kaylie ss abnormality. Prominent ingested debris within the stomach. Moderate stool burden. No pericolic inflammatory change . 1.1 cm and 0.5 cm nonobstructive calculi within the right kidney. Surgical clips are present in the right suprarenal region and the right paravertebral region. No hydronephrosis. Small 4 mm calcification in the right side of the pelvis is equivocal for phleboli ths versus ureteral calculus. Sutures along the anterior abdominal wall epigastrium. Mesh repair along the anterior mid abdominal w all. Bladder incompletely distended. Uterus surgically absent. No abnormal fluid collection the pelvis or pelvic lymphadenopathy. Bones: Degenerative changes at the hips. Left total hip arthroplasty. IMPRESSION: 1. Nonobstructive right renal calculi measuring 1.1 cm and 0.5 cm. 2. A small 4 mm calcification in the right side of the pelvis is equivocal for a distal ureteral brandee culus versus a fluid. The lack of hydronephrosis makes a phlebolith more likely. Clinically correlate . 3. The duodenum appears thickened and distended up to 4.9 cm. Enteritis/duodenitis is possible. Ruddy mmend follow-up CT after IV and oral contrast administration to reassess this region (for example, co darian image 42).
== END | disposition home or self-care (01) ==
LOC: RADCTMAIN 14:00
PROVIDERS: ATTEND Urology
DX: C64.1 Malignant neoplasm of right kidney, except renal pelvis (principal); N20.0 Calculus of kidney
CPT/HCPCS: 74176

== ENCOUNTER → 2020-07-03 | Outpatient (CLI) | payer MEDICARE ==
[2020-07-03 12:41] LABS: African American GFR (CKD) >90 (>60 ml/min/1.73 sqM); Blood Urea Nitrogen 13 mg/dL (7-17); Non-African American GFR(CKD) >90 (>60 ml/min/1.73 sqM)
--- NOTE | 2020-07-03 13:30 | CT ---
EXAMINATION TYPE: CT abdomen pelvis w con DATE OF EXAM: 07/03/2020 HISTORY: Generalized pain, bloating, diarrhea, constipation per patient. Diverticulitis per order CT DLP: 897.8mGycm Automated Exposure Control for Dose Reduction was Utilized. CONTRAST: CT scan of the abdomen and pelvis is performed with IV Contrast, patient injected with 100 mL of Isov ue 300. COMPARISON: CT abdomen and pelvis November 14, 2019. FINDINGS: LUNG BASES: Mild focal left lingular linear scarring and/or atelectasis on axial image 1. LIVER/GB: Liver remains low dense consistent with diffuse fatty infiltration. Gallbladder surgically absent similar to prior. PANCREAS: No significant abnormality is seen. SPLEEN: No significant abnormality is seen. ADRENALS: No significant abnormality is seen. KIDNEYS: Persistent surgical change or upper pole of right kidney with some scattered nonobstructing calculi redemonstrated. Surgical clips along the right renal artery redemonstrated. Symmetrical nodul ar uptake and excretion without hydronephrosis or concerning mass in either kidney. BOWEL: Oral contrast reaches level of the rectum. No suspicious small bowel dilatation identified. Sl ight contrast-filled prominence of the right and transverse colon. Stomach not greatly distended. The re is poor contrast opacification of duodenal sweep with persistent dilatation particularly the secon d portion where there is fairly severe wall thickening identified currently. There is suspected some [id number] wall thickening in the proximal jejunal loops in the left upper to midabdomen. No si gnificant diverticulosis or CT evidence for acute diverticulitis UTERUS/ADNEXA: Uterus surgically absent or markedly atrophic similar to prior. LYMPH NODES: No greater than 1cm abdominal or pelvic lymph nodes are appreciated. OSSEOUS STRUCTURES: Metallic artifact from left hip arthroplasty causes streak artifact limiting eval uation of pelvic structures. There is facet Arthropathy lower lumbar levels. OTHER: Prior ventral hernia repair surgery with curvilinear density near the umbilicus. There are hor izontal sutures along the rectus sheath superior to this. No recurrent hernia. IMPRESSION: 1. No diverticulosis or CT evidence for acute diverticulitis. Overall nonobstructive mayela l gas pattern. Persistent prominence of the second portion of duodenum with severe wall thickening. C onsider infiltrative process such as lymphoma in differential. Advise further investigation with dire ct visualization if it has not been performed. Note is made of surgical changes near this level at le floyd of the right renal artery and suprarenal region. Finding could be product of prior radiation marlon tment. Correlate clinically.
== END | disposition home or self-care (01) ==
LOC: RADCTMAIN 11:56
PROVIDERS: ATTEND Surgery Plastic and Reconstructive Surgery
DX: K31.89 Other diseases of stomach and duodenum (principal); K57.32 Diverticulitis of large intestine without perforation or abscess without bleeding; Z98.890 Other specified postprocedural states
CPT/HCPCS: 82565; 84520; 74177; 36415; Q9967

== ENCOUNTER → 2020-07-08 | Outpatient (CLI) | payer MEDICARE ==
[2020-07-08 13:03] LABS: HCT 40.4 % (34.0-46.0); HGB 13.1 gm/dL (11.4-16.0); MCH 27.8 pg (25.0-35.0); MCHC 32.4 g/dL (31.0-37.0); MCV 85.8 fL (80.0-100.0); Platelet Count 301 k/uL (150-450); RBC 4.71 m/uL (3.80-5.40); RDW 13.5 % (11.5-15.5); WBC 7.8 k/uL (3.8-10.6)
[2020-07-08 18:57] LABS: % Iron Saturation 20.32 (12.00-45.00); African American GFR (CKD) 103.9 (60.0-200.0); Albumin 4.4 g/dL (3.80-4.90); Albumin/Globulin Ratio 2.2 (1.60-3.17); Anion Gap 8.9 mmol/L (4.00-12.00); BUN/Creat Ratio 14.29 Ratio (12.00-20.00); Calcium 9.8 mg/dL (8.7-10.3); Carbon Dioxide 28.1 mmol/L (21.6-31.8); Chol/HDL Ratio 3.25; LDL Cholesterol,Calculated 83.2 mg/dL (0.0-131.0); Magnesium 1.8 mg/dL (1.5-2.4); Non-African American GFR(CKD) 89.7 (60.0-200.0); Phosphorus 3.8 mg/dL (2.4-5.1); Potassium 3.8 mmol/L (3.5-5.5); Total Bilirubin 0.5 mg/dL (0.3-1.2); Total Protein 6.4 g/dL (6.2-8.2); VLDL Calculation 58.8 mg/dL (5.00-40.00)
[2020-07-08 20:01] LABS: Ferritin 49.3 ng/mL (10.0-291.0)
[2020-07-08 21:10] LABS: Folate, Serum 23.1 ng/mL
[2020-07-09 04:41] LABS: INR 0.98 (0.90-1.11); Partial Thromboplastin Time 30.7 sec (24.7-29.9); Prothrombin Time 10.5 sec (9.9-11.9)
[2020-07-09 13:58] LABS: Zinc, Serum 69 ug/dL (60-130)
[2020-07-09 14:19] LABS: Vitamin A 65 ug/dL (38-106)
[2020-07-10 06:22] LABS: Vit B1(Thiamine) 86 ug/L (38-122)
== END | disposition home or self-care (01) ==
LOC: LABWHC1 11:02
PROVIDERS: ATTEND Surgery Plastic and Reconstructive Surgery
DX: E21.1 Secondary hyperparathyroidism, not elsewhere classified (principal); E66.01 Morbid (severe) obesity due to excess calories; D50.8 Other iron deficiency anemias; K90.89 Other intestinal malabsorption; E44.0 Moderate protein-calorie malnutrition; E55.9 Vitamin D deficiency, unspecified; K74.1 Hepatic sclerosis; N19 Unspecified kidney failure; K50.90 Crohn's disease, unspecified, without complications; E89.1 Postprocedural hypoinsulinemia
CPT/HCPCS: 36415; 80053; 80061; 82306; 82525; 82607; 82728; 82746; 83036; 83540; 83550; 83735; 83970; 84100; 84134; 84255; 84425; 84443; 84590; 84630; 85027; 85610; 85730

== ENCOUNTER → 2020-08-25 | Outpatient (CLI) | payer MEDICARE ==
[2020-08-25 11:58] LABS: HCT 36.7 % (34.0-46.0); HGB 12.2 gm/dL (11.4-16.0); MCH 29.8 pg (25.0-35.0); MCHC 33.1 g/dL (31.0-37.0); Platelet Count 234 k/uL (150-450); RBC 4.08 m/uL (3.80-5.40); RDW 13.1 % (11.5-15.5); WBC 6.4 k/uL (3.8-10.6)
[2020-08-25 18:44] LABS: % Iron Saturation 16.22 (12.00-45.00); African American GFR (CKD) 88.4 (60.0-200.0); Albumin 4.2 g/dL (3.80-4.90); Albumin/Globulin Ratio 2.33 (1.60-3.17); Anion Gap 6.8 mmol/L (4.00-12.00); BUN/Creat Ratio 18.75 Ratio (12.00-20.00); Calcium 9.7 mg/dL (8.7-10.3); Carbon Dioxide 30.2 mmol/L (21.6-31.8); Chol/HDL Ratio 3.2; Globulin 1.8 g/dL (1.6-3.3); Magnesium 1.6 mg/dL (1.5-2.4); Non-African American GFR(CKD) 76.3 (60.0-200.0); Potassium 4.3 mmol/L (3.5-5.5); Total Bilirubin 0.3 mg/dL (0.3-1.2)
[2020-08-25 18:53] LABS: Ferritin 46.3 ng/mL (10.0-291.0)
[2020-08-25 20:17] LABS: Hemoglobin A1C 4.8 % (4.0-6.0)
[2020-08-25 20:36] LABS: INR 0.95 (0.90-1.11); Partial Thromboplastin Time 26.9 sec (24.7-29.9); Prothrombin Time 10.2 sec (9.9-11.9)
[2020-08-26 11:37] LABS: Zinc, Serum 86 ug/dL (60-130)
[2020-08-27 05:14] LABS: Vit B1(Thiamine) 81 ug/L (38-122)
[2020-08-27 05:23] LABS: Vitamin A 66 ug/dL (38-106)
[2020-08-27 22:54] LABS: Selenium 140 mcg/L (63-160)
== END | disposition home or self-care (01) ==
LOC: LABWHC1 11:13
PROVIDERS: ATTEND Surgery Plastic and Reconstructive Surgery
DX: E66.01 Morbid (severe) obesity due to excess calories (principal); E89.1 Postprocedural hypoinsulinemia; D50.8 Other iron deficiency anemias; E44.0 Moderate protein-calorie malnutrition; E55.9 Vitamin D deficiency, unspecified; N19 Unspecified kidney failure; K50.90 Crohn's disease, unspecified, without complications
CPT/HCPCS: 36415; 80053; 80061; 82306; 82525; 82607; 82728; 82746; 83036; 83540; 83550; 83735; 83970; 84100; 84134; 84255; 84425; 84443; 84590; 84630; 85027; 85610; 85730

== ENCOUNTER 2020-08-28 07:12 | Day surgery (SDC) | payer MEDICARE ==
[2020-08-25 13:55] VITALS: BMI 33.0
[~2020-08-28 07:12] MED LIST changes: -LIDOCAINE 1% 20 ML VIAL (10MG/ML) FOR IV START INTRADERMA PRN
[2020-08-28 08:50] VITALS: TEMP 97.3
[2020-08-28] MEDS ORDERED: LIDOCAINE 1% (10MG/ML) FOR IV START INTRADERMA ONE (08:50)
[2020-08-28 08:58] LABS: Glucose,Whole Blood 95 mg/dL (75-99)
--- NOTE | 2020-08-28 09:09 | P.GSHP ---
History of Present Illness H&P Date: 08/28/20 CHIEF COMPLAINT: Colon screen HISTORY OF PRESENT ILLNESS: The patient is a 65-year-old female who presents for colon screen. Lower endoscopy was offered for further evaluation and management. PAST MEDICAL HISTORY: Please see list. PAST SURGICAL HISTORY: Please see list. MEDICATIONS: Please see list. ALLERGIES: Please see list. SOCIAL HISTORY: No illicit drug use FAMILY HISTORY: No reports of Crohn disease or ulcerative colitis. REVIEW OF ORGAN SYSTEMS: CONSTITUTIONAL: No reports of fevers or chills. PHYSICAL EXAM: VITAL SIGNS: Stable GENERAL: Well-developed pleasant in no acute distress. HEENT: No scleral icterus. Extraocular movements grossly intact. Moist buccal mucosa. NECK: Supple without lymphadenopathy. CHEST: Unlabored respirations. Equal bilateral excursions. CARDIOVASCULAR: Regular rate and rhythm. Distal 2+ pulses. ABDOMEN: Soft, nontender, nondistended. MUSCULOSKELETAL: No clubbing, cyanosis, or edema. ASSESSMENT: 1. Colon screen. PLAN: 1. Recommend proceeding with a lower endoscopy Past Medical History Past Medical History: Cancer, Diabetes Mellitus, GERD/Reflux, Myocardial Infarction ([place]), Osteoarthritis (OA), Thyroid Disorder Additional Past Medical History / Comment(s): hx RIght kidney cancer,hx cancerous polyps in colon, Kidney stones , enlarged heart, diverticulosis, hx pancreatitis,hypoglycemia Last Myocardial Infarction Date:: 2005 History of Any Multi-Drug Resistant Organisms: MRSA Date of last positivie culture/infection: 04/12/2015 MDRO Source:: Right Thigh Past Surgical History: Adenoidectomy, Appendectomy, Bariatric Surgery, Cholecystectomy, Hernia Repair, Hysterectomy, Joint Replacement, Tonsillectomy Additional Past Surgical History / Comment(s): partial right kidney removed 2011, hernia x 3, Bilateral knee replacement, left hip replacement, gastric bypass, kyree carpal tunnel, kidney stone removed from left kidney Past Anesthesia/Blood Transfusion Reactions: Motion Sickness, Postoperative Nausea & Vomiting (PONV) Smoking Status: Former smoker - Past Family History Son(s) Family Medical History: Cancer Additional Family Medical History / Comment(s): thyroid CA Sister(s) Family Medical History: Cancer, Deep Vein Thrombosis (DVT) Mother Family Medical History: Congestive Heart Failure (CHF), Diabetes Mellitus, Rheumatoid Arthritis (RA) Additional Family Medical History / Comment(s): bilateral knee replacements, back surgery, Medications and Allergies Home Medications Medication Instructions Recorded Confirmed Type Levothyroxine Sodium [Synthroid] 250 mcg PO QAM 04/12/15 08/28/20 History Aspirin 81 mg PO DAILY 01/25/19 08/28/20 History Multivitamins, Thera [Multivitamin 1 tab PO DAILY 01/25/19 08/28/20 History (formulary)] Cholecalciferol [Vitamin D3 (25 10,000 unit PO DAILY 08/25/20 08/28/20 History Mcg = 1000 Iu)] DULoxetine HCL [Cymbalta] 30 mg PO HS 08/25/20 08/28/20 History Allergies Allergy/AdvReac Type Severity Reaction Status Date / Time adhesive tape Allergy blisters Verified 08/28/20 08:32 Iodine and Iodide Containing Allergy Anaphylaxis Verified 08/28/20 08:32 Produc shellfish derived [Shellfish] Allergy Anaphylaxis Verified 08/28/20 08:32 soy Allergy severe Verified 08/28/20 08:32 headache,"can't function" Fish Containing Products AdvReac headache Verified 08/28/20 08:32 magnesium AdvReac Headache Verified 08/28/20 08:32 Penicillins AdvReac Nausea & Verified 08/28/20 08:32 Vomiting & Diarrhea bandaid Allergy blisters Uncoded 08/28/20 08:32 multivitamins AdvReac headache Uncoded 08/28/20 08:32 Surgical - Exam Vital Signs Temp Pulse Resp BP Pulse Ox 97.3 F L 74 16 159/71 98 08/28/20 08:49 08/28/20 08:49 08/28/20 08:49 08/28/20 08:49 08/28/20 08:49
[2020-08-28] MEDS ORDERED: GLYCOPYRROLATE 0.2 MG/ML 2 ML VIAL ONE (09:15)
[2020-08-28] MEDS ORDERED: ATROPINE SULFATE 0.4 MG/ML 1 ML VIAL ONE (09:15)
[2020-08-28] MEDS ORDERED: PROPOFOL 10 MG/ML 20 ML VIAL IV ONE (09:15)
[2020-08-28] MEDS ORDERED: ONDANSETRON 4 MG/2 ML VIAL ONE (09:15)
--- NOTE | 2020-08-28 09:43 | P.PCN ---
Date of Procedure: 08/28/20 Description of Procedure: PREOPERATIVE DIAGNOSIS: History of colon polyps POSTOPERATIVE DIAGNOSIS: History of colon polyps External hemorrhoids, grade 3 Vasovagal response OPERATION: Colonoscopy to the cecum, ileocecal valve SURGEON: Shama Taveras MD. ANESTHESIA: MAC. INDICATIONS: The patient is a 65-year-old female who presents for colonoscopy screening. Last colonoscopy over 5 years ago. enefits and risks were described and informed consent was obtained. DESCRIPTION OF PROCEDURE: The patient had undergone Gatorade, MiraLAX and Dulcolax prep. She had been brought into the operating room and laid in the left lateral decubitus position. After adequate intravenous sedation, the rectum was examined with 2% lidocaine jelly. External hemorrhoids were encountered. The rectal tone was within normal limits. No lesions were palpated in the rectal vault. An Olympus colonoscope was advanced until the cecum, ileocecal valve whereby a tortuous sigmoid colon. Patient had vasovagal response requiring atropine. The prep was excellent. No scattered diverticulosis was encountered. No colonic polyps were found. No evidence of focal colitis was found. Retroflexion of the scope demonstrated grade 2 internal hemorrhoids without active bleeding or inflammation. The colon was desufflated. The patient had tolerated the procedure well. Withdrawal time was over 6 minutes. FINDINGS: Aronchick preparation quality scale 1 (1-5) Internal hemorrhoids, grade 1 External prolapsed hemorrhoids, grade 3 No arteriovenous malformations. No adenomatous polyps. No focal colitis. Vasovagal response RECOMMENDATIONS: Lower endoscopy in 5 years, 2024 otherwise Cologaurd Plan - Discharge Summary Discharge Rx Participant: No New Discharge Prescriptions: Continue Levothyroxine Sodium [Synthroid] 250 mcg PO QAM Multivitamins, Thera [Multivitamin (formulary)] 1 tab PO DAILY Aspirin 81 mg PO DAILY Cholecalciferol [Vitamin D3 (25 Mcg = 1000 Iu)] 10,000 unit PO DAILY DULoxetine HCL [Cymbalta] 30 mg PO HS Discharge Medication List Levothyroxine Sodium [Synthroid] 250 mcg PO QAM 04/12/15 [History] Aspirin 81 mg PO DAILY 01/25/19 [History] Multivitamins, Thera [Multivitamin (formulary)] 1 tab PO DAILY 01/25/19 [History] Cholecalciferol [Vitamin D3 (25 Mcg = 1000 Iu)] 10,000 unit PO DAILY 08/25/20 [History] DULoxetine HCL [Cymbalta] 30 mg PO HS 08/25/20 [History] Follow up Appointment(s)/Referral(s): Shama Taveras MD [STAFF PHYSICIAN] - 09/16/20 Patient Instructions/Handouts: *[facility] - (Anesthesia) Endoscopy Discharge Instructions, Colonoscopy (DC) Activity/Diet/Wound Care/Special Instructions: Repeat colonoscopy 5 years, 2024 Discharge Disposition: HOME SELF-CARE
[2020-08-28 09:56] VITALS: RESP 16
[2020-08-28 10:09] VITALS: BP 135/62; PULSE 80
== END 2020-08-28 10:10 | disposition home or self-care (01) ==
LOC: ORWHC2ENDO 07:12
PROVIDERS: ATTEND Surgery Plastic and Reconstructive Surgery
DX: Z12.11 Encounter for screening for malignant neoplasm of colon (principal); K64.0 First degree hemorrhoids; K64.2 Third degree hemorrhoids; Z86.010 Personal history of colon polyps; R55 Syncope and collapse; Z79.82 Long term (current) use of aspirin; Z79.890 Hormone replacement therapy; Z79.899 Other long term (current) drug therapy; E11.9 Type 2 diabetes mellitus without complications; K21.9 Gastro-esophageal reflux disease without esophagitis; I25.2 Old myocardial infarction; M19.90 Unspecified osteoarthritis, unspecified site; E07.9 Disorder of thyroid, unspecified; Z85.528 Personal history of other malignant neoplasm of kidney; Z87.442 Personal history of urinary calculi; I51.7 Cardiomegaly; K57.30 Diverticulosis of large intestine without perforation or abscess without bleeding; Z87.19 Personal history of other diseases of the digestive system; E11.649 Type 2 diabetes mellitus with hypoglycemia without coma; Z86.14 Personal history of Methicillin resistant Staphylococcus aureus infection; Z98.84 Bariatric surgery status; Z90.49 Acquired absence of other specified parts of digestive tract; Z90.710 Acquired absence of both cervix and uterus; Z90.5 Acquired absence of kidney; Z96.653 Presence of artificial knee joint, bilateral; Z96.642 Presence of left artificial hip joint; Z98.890 Other specified postprocedural states; Z87.891 Personal history of nicotine dependence; Z80.8 Family history of malignant neoplasm of other organs or systems; Z82.49 Family history of ischemic heart disease and other diseases of the circulatory system; Z83.3 Family history of diabetes mellitus; Z82.61 Family history of arthritis; Z88.0 Allergy status to penicillin; Z91.013 Allergy to seafood; Z88.8 Allergy status to other drugs, medicaments and biological substances; Z91.018 Allergy to other foods; Z91.048 Other nonmedicinal substance allergy status; Z91.09 Other allergy status, other than to drugs and biological substances
CPT/HCPCS: J0461; J2405; J2704; G0105; 45378

== ENCOUNTER 2020-10-08 08:18 | Day surgery (SDC) | payer MEDICARE ==
[2020-10-01 12:01] VITALS: BMI 32.5
--- NOTE | 2020-10-08 09:24 | P.GSHP ---
History of Present Illness H&P Date: 10/08/20 CHIEF COMPLAINT: GERD HISTORY OF PRESENT ILLNESS: The patient is a 65-year-old female who presents reports gastroesophageal reflux disease. Upper endoscopy was offered for further evaluation and management. PAST MEDICAL HISTORY: Please see list. PAST SURGICAL HISTORY: Please see list. MEDICATIONS: Please see list. ALLERGIES: Please see list. SOCIAL HISTORY: No illicit drug use FAMILY HISTORY: No reports of Crohn disease or ulcerative colitis. REVIEW OF ORGAN SYSTEMS: CONSTITUTIONAL: No reports of fevers or chills. GI: Denies any blood in stools or constipation. PHYSICAL EXAM: VITAL SIGNS: Stable GENERAL: Well-developed and pleasant in no acute distress. HEENT: No scleral icterus. Extraocular movements grossly intact. Moist buccal mucosa. NECK: Supple without lymphadenopathy. CHEST: Unlabored respirations. Equal bilateral excursions. CARDIOVASCULAR: Regular rate and rhythm. Distal 2+ pulses. ABDOMEN: Soft, nondistended. MUSCULOSKELETAL: No clubbing, cyanosis, or edema. ASSESSMENT: 1. Gastroesophageal reflux disease PLAN: 1. Recommend proceeding with an upper endoscopy Past Medical History Past Medical History: Cancer, Diabetes Mellitus, GERD/Reflux, Myocardial Infarction ([place]), Osteoarthritis (OA), Thyroid Disorder Additional Past Medical History / Comment(s): hx RIght kidney cancer,hx cancerous polyps in colon, Kidney stones , enlarged heart, diverticulosis, hx pancreatitis, hypoglycemia Last Myocardial Infarction Date:: 2005 History of Any Multi-Drug Resistant Organisms: MRSA Date of last positivie culture/infection: 04/12/2015 MDRO Source:: Right Thigh Past Surgical History: Adenoidectomy, Appendectomy, Bariatric Surgery, Cholecystectomy, Hernia Repair, Hysterectomy, Joint Replacement, Tonsillectomy Additional Past Surgical History / Comment(s): partial right kidney removed 2011, hernia x 3, Bilateral knee replacement, left hip replacement, gastric bypass, kyree carpal tunnel, kidney stone removed from left kidney, COLONOSCOPY 08/28/20 Past Anesthesia/Blood Transfusion Reactions: Motion Sickness Smoking Status: Former smoker - Past Family History Son(s) Family Medical History: Cancer Additional Family Medical History / Comment(s): thyroid CA Sister(s) Family Medical History: Cancer, Deep Vein Thrombosis (DVT) Mother Family Medical History: Congestive Heart Failure (CHF), Diabetes Mellitus, Rheumatoid Arthritis (RA) Additional Family Medical History / Comment(s): bilateral knee replacements, back surgery, Medications and Allergies Home Medications Medication Instructions Recorded Confirmed Type Levothyroxine Sodium [Synthroid] 250 mcg PO QAM 04/12/15 10/01/20 History Aspirin 81 mg PO DAILY 01/25/19 10/01/20 History Multivitamins, Thera [Multivitamin 1 tab PO DAILY 01/25/19 10/01/20 History (formulary)] Cholecalciferol [Vitamin D3 (25 10,000 unit PO DAILY 08/25/20 10/01/20 History Mcg = 1000 Iu)] DULoxetine HCL [Cymbalta] 30 mg PO HS 08/25/20 10/01/20 History Allergies Allergy/AdvReac Type Severity Reaction Status Date / Time adhesive tape Allergy blisters Verified 10/01/20 11:56 Iodine and Iodide Containing Allergy Anaphylaxis Verified 10/01/20 11:56 Produc latex Allergy Rash/Hives Verified 10/01/20 11:59 shellfish derived [Shellfish] Allergy Anaphylaxis Verified 10/01/20 11:56 soy Allergy severe Verified 10/01/20 11:56 headache,"can't function" Fish Containing Products AdvReac headache Verified 10/01/20 11:56 magnesium AdvReac Headache Verified 10/01/20 11:56 Penicillins AdvReac Nausea & Verified 10/01/20 11:56 Vomiting & Diarrhea bandaid Allergy blisters Uncoded 10/01/20 11:56 multivitamins AdvReac headache Uncoded 10/01/20 11:56
[2020-10-08 09:38] VITALS: RESP 18; TEMP 98.1
[2020-10-08] MEDS ORDERED: LACTATED RINGERS 1,000 ML IV ONE (09:38)
[2020-10-08] MEDS ORDERED: LIDOCAINE 1% (10MG/ML) FOR IV START INTRADERMA ONE (09:39)
[2020-10-08 09:49] LABS: Glucose,Whole Blood 88 mg/dL (75-99)
[2020-10-08] MEDS ORDERED: PROPOFOL 10 MG/ML 20 ML VIAL IV ONE (10:06)
[2020-10-08] MEDS ORDERED: LIDOCAINE 1% INJ 10MG/ML (20 ML MDV) ONE (10:06)
[2020-10-08] MEDS ORDERED: GLYCOPYRROLATE 0.2 MG/ML 2 ML VIAL ONE (10:06)
--- NOTE | 2020-10-08 10:36 | P.PCN ---
Date of Procedure: 10/08/20 Description of Procedure: PREOPERATIVE DIAGNOSIS: Abnormal CT for small bowel lymphoma History of bariatric procedure POSTOPERATIVE DIAGNOSIS: Abnormal CT for small bowel lymphoma History of bariatric procedure OPERATION: Esophagogastroduodenoscopy with biopsies along proximal to mid jejunum using cold biopsy forceps SURGEON: Shama Taveras MD ANESTHESIA: MAC. INDICATIONS: The patient is a 65-year-old female who presents with a history of small bowel lymphoma per CT imaging. Benefits and risks of the procedure were described. Informed consent was obtained. DESCRIPTION: The patient was brought into the endoscopy suite and laid in the left lateral decubitus position. An Olympus gastroscope was passed along the posterior oropharynx down to the distal esophagus where the squamocolumnar junction was encountered at 37 cm from the incisors. The stomach was entered and no bile reflux was found. Additional findings are listed below. Biopsies with cold forceps were obtained of the antrum. The first through third portion of the duodenum was examined and unremarkable. Cold forceps biopsies along the proximal to mid jejunum was obtained. Retroflexion of the scope confirmed Hill grade 2 lower esophageal valve. The squamocolumnar junction demonstrated LA grade B erosive esophagitis. The stomach was desufflated. The patient tolerated the procedure well. FINDINGS: Squamocolumnar junction 37 cm from the incisors. Diaphragmatic hiatus at 37 cm. Hill grade 2 lower esophageal valve. LA grade B erosive esophagitis. No active duodenitis. Chronic gastritis No active inflammation along the proximal jejunum with biopsies obtained RECOMMENDATIONS: Upper endoscopy as needed. Plan - Discharge Summary Discharge Rx Participant: No New Discharge Prescriptions: Continue Levothyroxine Sodium [Synthroid] 250 mcg PO QAM Multivitamins, Thera [Multivitamin (formulary)] 1 tab PO DAILY Aspirin 81 mg PO DAILY Cholecalciferol [Vitamin D3 (25 Mcg = 1000 Iu)] 10,000 unit PO DAILY DULoxetine HCL [Cymbalta] 30 mg PO HS Discharge Medication List Levothyroxine Sodium [Synthroid] 250 mcg PO QAM 04/12/15 [History] Aspirin 81 mg PO DAILY 01/25/19 [History] Multivitamins, Thera [Multivitamin (formulary)] 1 tab PO DAILY 01/25/19 [History] Cholecalciferol [Vitamin D3 (25 Mcg = 1000 Iu)] 10,000 unit PO DAILY 08/25/20 [History] DULoxetine HCL [Cymbalta] 30 mg PO HS 08/25/20 [History] Follow up Appointment(s)/Referral(s): Shama Taveras MD [STAFF PHYSICIAN] - 10/21/20 Patient Instructions/Handouts: *[facility] - (Anesthesia) Endoscopy Discharge Instructions Discharge Disposition: HOME SELF-CARE
[2020-10-08 10:45] VITALS: BP 143/83; PULSE 91
== END 2020-10-08 11:04 | disposition home or self-care (01) ==
LOC: ORWHC2ENDO 08:18
PROVIDERS: ATTEND Surgery Plastic and Reconstructive Surgery
DX: Z98.84 Bariatric surgery status (principal); K21.00 Gastro-esophageal reflux disease with esophagitis, without bleeding; K22.10 Ulcer of esophagus without bleeding; K29.50 Unspecified chronic gastritis without bleeding; E11.9 Type 2 diabetes mellitus without complications; I25.2 Old myocardial infarction; C85.90 Non-Hodgkin lymphoma, unspecified, unspecified site; E07.9 Disorder of thyroid, unspecified; Z79.890 Hormone replacement therapy; Z79.82 Long term (current) use of aspirin; Z79.899 Other long term (current) drug therapy; Z91.040 Latex allergy status; Z91.041 Radiographic dye allergy status; Z85.528 Personal history of other malignant neoplasm of kidney; Z88.0 Allergy status to penicillin; Z87.891 Personal history of nicotine dependence; Z96.653 Presence of artificial knee joint, bilateral; Z86.14 Personal history of Methicillin resistant Staphylococcus aureus infection; Z86.010 Personal history of colon polyps; Z80.8 Family history of malignant neoplasm of other organs or systems; Z82.49 Family history of ischemic heart disease and other diseases of the circulatory system; M19.90 Unspecified osteoarthritis, unspecified site; K21.9 Gastro-esophageal reflux disease without esophagitis; Z83.3 Family history of diabetes mellitus; Z91.048 Other nonmedicinal substance allergy status
CPT/HCPCS: 88305; 43239; J2001; J2704

== ENCOUNTER → 2020-11-12 | Outpatient (CLI) | payer MEDICARE ==
--- NOTE | 2020-11-12 14:44 | XR ---
EXAMINATION TYPE: XR chest 2V DATE OF EXAM: 11/12/2020 COMPARISON: Chest x-ray January 25, 2019 HISTORY: History of asthma with dry cough and shortness of breath. TECHNIQUE: Frontal and lateral views of the chest are obtained. FINDINGS: There is no suspicious new focal air space opacity, pleural effusion, or pneumothorax seen . The cardiac silhouette size is stable and upper limits of normal. The osseous structures are int act. Cholecystectomy clips are redemonstrated. IMPRESSION: No acute cardiopulmonary process. No significant change from prior.
[2020-11-12 15:20] LABS: Basophils % (A) 0 %; Eosinophils # (A) 0.1 k/uL (0-0.7); Eosinophils % (A) 2 %; HCT 40.5 % (34.0-46.0); HGB 13.5 gm/dL (11.4-16.0); Lymphocytes % (A) 27 %; MCH 29.2 pg (25.0-35.0); MCHC 33.3 g/dL (31.0-37.0); MCV 87.7 fL (80.0-100.0); Mean Platelet Volume 7.1; Monocytes # (A) 0.3 k/uL (0-1.0); Monocytes % (A) 4 %; Neutrophils % (A) 66 %; Platelet Count 262 k/uL (150-450); RBC 4.61 m/uL (3.80-5.40); RDW 13.5 % (11.5-15.5); WBC 7.6 k/uL (3.8-10.6)
[2020-11-12 17:58] LABS: Erythrocyte Sedimentation Rate 10 mm/hr (0-20)
[2020-11-13 01:29] LABS: African American GFR (CKD) 103.9 (60.0-200.0); Albumin 4.4 g/dL (3.80-4.90); Albumin/Globulin Ratio 2.59 (1.60-3.17); Anion Gap 8.5 mmol/L (4.00-12.00); BUN/Creat Ratio 14.29 Ratio (12.00-20.00); Calcium 9.6 mg/dL (8.7-10.3); Carbon Dioxide 27.5 mmol/L (21.6-31.8); Globulin 1.7 g/dL (1.6-3.3); Non-African American GFR(CKD) 89.7 (60.0-200.0); Potassium 3.7 mmol/L (3.5-5.5); Total Bilirubin 0.3 mg/dL (0.3-1.2); Total Protein 6.1 g/dL (6.2-8.2)
== END | disposition home or self-care (01) ==
LOC: LABWHC1 14:14
PROVIDERS: ATTEND Allergy & Immunology
DX: R05 Cough (principal); M79.10 Myalgia, unspecified site; D64.9 Anemia, unspecified
CPT/HCPCS: 36415; 71046; 80053; 85025; 85652

== ENCOUNTER → 2020-12-17 | Outpatient (CLI) | payer MEDICARE ==
--- NOTE | 2020-12-17 11:14 | XR ---
EXAMINATION TYPE: XR KUB DATE OF EXAM: 12/17/2020 Comparison: None Clinical History: 65-year-old female assess for kidney stones , Findings: Extensive suture material projects horizontally across the upper to mid abdomen. Cholecystectomy clip s. Degenerative changes lower lumbar spine. Partially visualized left hip arthroplasty. Nonobstructiv e bowel gas pattern. Scattered mild stool. Right-sided pelvic phleboliths. Some calcifications in the right side of the abdomen measure up to 4 mm. Bowel content partially obscures the left renal shadow but there seems to be a 3 mm calcification on the left side. Impression: A few calcifications right mid abdomen measuring up to 4 mm and one on the left measuring 3 mm could represent nephrolithiasis.
== END | disposition home or self-care (01) ==
LOC: RADXRMAIN 09:05
PROVIDERS: ATTEND Urology
DX: N28.89 Other specified disorders of kidney and ureter (principal)
CPT/HCPCS: 74018

== ENCOUNTER → 2021-01-02 | Outpatient (CLI) | payer MEDICARE ==
--- NOTE | 2021-01-02 10:52 | CT ---
EXAMINATION TYPE: CT abdomen pelvis wo con DATE OF EXAM: 01/02/2021 COMPARISON: July 03, 2020 HISTORY: Calculus of Kidney CT DLP: 637 mGycm Examination of the solid and hollow viscera is limited given the lack of contrast. FINDINGS: LUNG BASES: No evidence for nodule. No evidence for infiltrate. LIVER/GB: The gallbladder is unremarkable. No space-occupying hepatic lesion. PANCREAS: No pancreatic mass identified. No inflammatory process seen. SPLEEN: No evidence for splenomegaly. No intrasplenic lesions seen. ADRENALS: No adrenal nodules identified. No evidence for thickening. KIDNEYS: No evidence for renal mass. Right renal parenchymal thinning likely related to prior insult. Proximally 4 nonobstructing right renal calculi measuring up to 5 mm. No hydronephrosis. BOWEL: Appendix has a normal appearance. No evidence of bowel obstruction. No inflammatory process. Lymph nodes: No evidence for adenopathy greater than 1 cm. Abdominal aorta: Atheromatous changes seen. No evidence for aneurysm. Genital organs: Left hip prosthesis noted. Other: No significant abnormality. IMPRESSION: NONOBSTRUCTING RIGHT-SIDED NEPHROLITHIASIS.
== END | disposition home or self-care (01) ==
LOC: RADCTMAIN 09:31
PROVIDERS: ATTEND Urology
DX: N20.0 Calculus of kidney (principal); Z88.0 Allergy status to penicillin; Z88.3 Allergy status to other anti-infective agents; Z91.018 Allergy to other foods
CPT/HCPCS: 74176

== ENCOUNTER → 2021-01-12 | Outpatient (CLI) | payer MEDICARE ==
[2021-01-12 10:38] LABS: Appearance,Urine Clear (Clear); Bilirubin,Urine Negative (Negative); Blood,Urine Negative (Negative); Color,Urine Yellow; Glucose,Urine (UA) Negative (Negative); Ketones,Urine Negative (Negative); Leukocyte Esterase,Urine Negative (Negative); Nitrite,Urine Negative (Negative); Protein,Urine Negative (Negative); Specific Gravity,Urine 1.004 (1.001-1.035); Urobilinogen,Urine <2.0 mg/dL (<2.0)
[2021-01-12 11:00] LABS: African American GFR (CKD) >90 (>60 ml/min/1.73 sqM); Anion Gap 7 mmol/L; Blood Urea Nitrogen 8 mg/dL (7-17); Carbon Dioxide 24 mmol/L (22-30); Chloride 110 mmol/L (98-107); Glucose 95 mg/dL (74-99); Non-African American GFR(CKD) 88 (>60 ml/min/1.73 sqM); Potassium 4.8 mmol/L (3.5-5.1); Sodium 141 mmol/L (137-145)
[2021-01-12 11:06] LABS: Basophils % (A) 0 %; Eosinophils # (A) 0.1 k/uL (0-0.7); Eosinophils % (A) 2 %; HCT 40.2 % (34.0-46.0); HGB 13.3 gm/dL (11.4-16.0); Lymphocytes # (A) 2.1 k/uL (1.0-4.8); Lymphocytes % (A) 29 %; MCV 90.9 fL (80.0-100.0); Mean Platelet Volume 7.2; Monocytes # (A) 0.3 k/uL (0-1.0); Monocytes % (A) 4 %; Neutrophils # (A) 4.8 k/uL (1.3-7.7); Neutrophils % (A) 65 %; Platelet Count 262 k/uL (150-450); RBC 4.43 m/uL (3.80-5.40); RDW 13.6 % (11.5-15.5); WBC 7.5 k/uL (3.8-10.6)
== END | disposition home or self-care (01) ==
LOC: LABPAT 08:59
PROVIDERS: ATTEND Urology
DX: Z01.818 Encounter for other preprocedural examination (principal); N20.0 Calculus of kidney; R35.0 Frequency of micturition
CPT/HCPCS: 36415; 80048; 81003; 85025; 87077; 87086; 87186

== ENCOUNTER 2021-01-19 08:19 | Day surgery (SDC) | payer MEDICARE ==
--- NOTE | 2021-01-15 09:31 | P.HPIHPCON ---
History of Present Illness H&P Date: 01/15/21 Chief Complaint: right sided renal calculi 65 yo female with hx of right sided renal stones. She is symptomatic secondary to her stone. Discussed with her surgical option including ESWL vs Ureteroscopy. Discussed with her the risk and benefit of each approach. She agreed to proceed with right sided ureteroscopy with holmium laser and stent placement. Discussed risk of bleeding, infection and injury to the ureter. She understood all the risk and agreed to proceed with right sided ureteroscopy with holmium laser and stent placement Consent for Procedure: I have explained the operation/procedure to the patient, including the risks, benefits, side effects, alternative therapies (including not receiving the proposed treatment or service), the likelihood of the patient achieving his/her goals, and potential recuperation problems for the procedure/sedation/analgesia, as well as any blood products, if indicated. I also explained to the patient the risks, benefits and side effects of the alternatives, as well as the risks related to not receiving the proposed procedure, care, treatment, or services. Past Medical History Past Medical History: Cancer, Diabetes Mellitus, GERD/Reflux, Myocardial Infarction ([place]), Osteoarthritis (OA), Thyroid Disorder Additional Past Medical History / Comment(s): hx RIght kidney cancer,hx cancerous polyps in colon, Kidney stones , enlarged heart, diverticulosis, hx pancreatitis, hypoglycemia Last Myocardial Infarction Date:: 2005 History of Any Multi-Drug Resistant Organisms: MRSA Date of last positivie culture/infection: 04/12/2015 MDRO Source:: Right Thigh Past Surgical History: Adenoidectomy, Appendectomy, Bariatric Surgery, Cholecystectomy, Hernia Repair, Hysterectomy, Joint Replacement, Tonsillectomy Additional Past Surgical History / Comment(s): partial right kidney removed 2011, hernia x 3, Bilateral knee replacement, left hip replacement, gastric bypass, kyree carpal tunnel, kidney stone removed from left kidney, COLONOSCOPY 08/28/20 Past Anesthesia/Blood Transfusion Reactions: Motion Sickness Smoking Status: Former smoker - Past Family History Son(s) Family Medical History: Cancer Additional Family Medical History / Comment(s): thyroid CA Sister(s) Family Medical History: Cancer, Deep Vein Thrombosis (DVT) Mother Family Medical History: Congestive Heart Failure (CHF), Diabetes Mellitus, Rheumatoid Arthritis (RA) Additional Family Medical History / Comment(s): bilateral knee replacements, back surgery, Medications and Allergies Home Medications Medication Instructions Recorded Confirmed Type Levothyroxine Sodium [Synthroid] 225 mcg PO QAM 04/12/15 01/15/21 History Aspirin 81 mg PO DAILY 01/25/19 01/15/21 History Multivitamins, Thera [Multivitamin 1 tab PO DAILY 01/25/19 01/15/21 History (formulary)] Cholecalciferol [Vitamin D3 (25 10,000 unit PO DAILY 08/25/20 01/15/21 History Mcg = 1000 Iu)] Omeprazole [PriLOSEC] 20 mg PO [id number] 01/15/21 01/15/21 History amLODIPine [Norvasc] 10 mg PO DAILY 01/15/21 01/15/21 History lisinopriL [Zestril] 5 mg PO DAILY 01/15/21 01/15/21 History Allergies Allergy/AdvReac Type Severity Reaction Status Date / Time adhesive tape Allergy blisters Verified 01/15/21 09:12 Iodine and Iodide Containing Allergy Anaphylaxis Verified 01/15/21 09:12 Produc latex Allergy Rash/Hives Verified 01/15/21 09:12 shellfish derived [Shellfish] Allergy Anaphylaxis Verified 01/15/21 09:12 soy Allergy severe Verified 01/15/21 09:12 headache,"can't function" Fish Containing Products AdvReac headache Verified 01/15/21 09:12 magnesium AdvReac Headache Verified 01/15/21 09:12 Penicillins AdvReac Nausea & Verified 01/15/21 09:12 Vomiting & Diarrhea bandaid Allergy blisters Uncoded 01/15/21 09:14 Surgical - Exam - General well developed, well nourished, no distress - ENT normal nares, normal mucosa - Respiratory normal expansion, normal respiratory effort Assessment and Plan Assessment: 65 yo female with hx of right sided renal stone -OR for right sided ureteroscopy, with holmium laser, stone basketting and stent placement
[2021-01-15 10:11] VITALS: BMI 34.9
[~2021-01-19 08:19] MED LIST changes: +DEXAMETHASONE SOD PHOSPHATE 4 MG/ML 1 ML VIAL IV ONE; +MIDAZOLAM 2 MG/2 ML VIAL IV PRN; +ONDANSETRON 4 MG/2 ML VIAL IVP ONE
--- NOTE | 2021-01-19 08:32 | XR ---
EXAMINATION TYPE: XR KUB DATE OF EXAM: 01/19/2021 Comparison: 12/17/2020 Clinical History: 65-year-old female scheduled for kidney stone intervention Findings: Multiple sutures project across the midabdomen. Cholecystectomy clips. Exam is underpenetrated. The p reviously seen faint bilateral calcifications are not well demonstrated on the current exam. Partiall y visualized left hip arthroplasty. Degenerative changes throughout the lumbar spine. Nonobstructive bowel gas pattern. Impression: Limited penetration on the current exam. Multiple sutures and cholecystectomy clips. The previous kyree ateral calcifications are not as well-seen on the present exam.
[2021-01-19] MEDS ORDERED: LIDOCAINE 1% (10MG/ML) FOR IV START INTRADERMA ONE (10:04)
[2021-01-19 10:05] LABS: Glucose,Whole Blood 88 mg/dL (75-99)
[2021-01-19] MEDS ORDERED: LIDOCAINE 1% INJ 10MG/ML (20 ML MDV) ONE (12:20)
[2021-01-19] MEDS ORDERED: PROPOFOL 10 MG/ML 20 ML VIAL IV ONE (12:20)
[2021-01-19] MEDS ORDERED: SUCCINYLCHOLINE CHLORIDE 100 MG/5 ML SYR IV ONE (12:20)
[2021-01-19] MEDS ORDERED: MIDAZOLAM 2 MG/2 ML VIAL ONE (12:20)
[2021-01-19] MEDS ORDERED: fentaNYL (PF) 50 MCG/ML 2 ML AMP ONE (12:20)
[2021-01-19] MEDS ORDERED: IOPAMIDOL-370 50ML BTL MISCELLANE ONE (12:48)
--- NOTE | 2021-01-19 13:36 | P.OP ---
Date of Procedure: 01/19/21 Preoperative Diagnosis: Right renal calculi Postoperative Diagnosis: Same Procedure(s) Performed: Cystoscopy, right retrograde pyelogram, right ureteroscopy, holmium laser lithotripsy, stone basketing, and stent placement Implants: 6-Pakistani by 24 cm stent Anesthesia: RAQUEL Surgeon: Derek Cerda Estimated Blood Loss (ml): 1 Pathology: other (right renal calculi) Condition: stable Disposition: PACU Indications for Procedure: 65 yo female with hx of right sided renal stones. She is symptomatic secondary to her stone. Discussed with her surgical option including ESWL vs Ureteroscopy. Discussed with her the risk and benefit of each approach. She agreed to proceed with right sided ureteroscopy with holmium laser and stent placement. Discussed risk of bleeding, infection and injury to the ureter. She understood all the risk and agreed to proceed with right sided ureteroscopy with holmium laser and stent placement Operative Findings: Multiple renal calculi in the lower pole Description of Procedure: Patient was brought to the operating room, general anesthesia was induced. She was prepped and draped in sterile fashion a placed in dorsal lithotimy position. Cystoscopy fitted with 21-Pakistani sheath was inserted per urethra, cystoscopy was performed showed no abnormality within the bladder. Attention was then carried to the right ureteral orifice, which was intubated with a 6- Pakistani open ended catheter, retrograde pyelogram was performed showed no filling defect along the course of the ureter, or hydronephrosis. At this time a sensor wire was advanced through the catheter and the catheter was removed with the wire in place. Next an 1113 Pakistani access sheath was passed over the wire under fluoroscopy into the proximal ureter. Next the flexible ureteroscope was inserted through the access sheath, renoscopy was performed which showed multiple stones within the lower calyx on the right. Using the holmium laser the stones were fragmented into small fragments, sizable fragments were removed and sent to pathology. Repeat renoscopy showed no sizable stones or injury to the kidney. Pullback ureteroscopy was performed showed no injury to the ureter or any ureteral stone. As the ureteroscope was withdrawn a sensor wire was advanced through the scope. Next a ureteral stent was passed over the wire, the proximal curl was visualized on fluoroscopy and distal curl was visualized using cystoscope. The bladder emptied at the end of the case. The stone was sent for analysis. The patient tolerated the procedure well was taken to PACU in stable condition
[2021-01-19 13:37] VITALS: RESP 16; TEMP 97.3
--- NOTE | 2021-01-19 14:03 | FL ---
EXAMINATION TYPE: FL urography retrograde DATE OF EXAM: 01/19/2021 FLUOROSCOPY Fluoroscopy time of 7 seconds was used during cystoscopy and right-sided stent placement. 1 image/s document/s the procedure.
[2021-01-19] MEDS ORDERED: SODIUM CHLORIDE 0.9% 1,000 ML IV ONE (14:04)
[2021-01-19] MEDS: HYDROmorphone 0.5 MG/0.5 ML SYRINGE IVP PRN ×2 (14:13→14:21)
[2021-01-19] MEDS ORDERED: traMADol 50 MG TAB ONE (15:21)
[2021-01-19 15:31] VITALS: BP 144/78; PULSE 82
== END 2021-01-19 16:06 | disposition home or self-care (01) ==
LOC: OR 08:19
PROVIDERS: ATTEND Urology
DX: N20.0 Calculus of kidney (principal); E11.9 Type 2 diabetes mellitus without complications; K21.9 Gastro-esophageal reflux disease without esophagitis; I25.2 Old myocardial infarction; K57.90 Diverticulosis of intestine, part unspecified, without perforation or abscess without bleeding; M19.90 Unspecified osteoarthritis, unspecified site; I25.10 Atherosclerotic heart disease of native coronary artery without angina pectoris; E07.9 Disorder of thyroid, unspecified; Z87.442 Personal history of urinary calculi; Z86.010 Personal history of colon polyps; E16.2 Hypoglycemia, unspecified; Z86.14 Personal history of Methicillin resistant Staphylococcus aureus infection; Z90.89 Acquired absence of other organs; Z98.84 Bariatric surgery status; Z90.49 Acquired absence of other specified parts of digestive tract; Z90.710 Acquired absence of both cervix and uterus; Z98.890 Other specified postprocedural states; Z96.653 Presence of artificial knee joint, bilateral; Z96.642 Presence of left artificial hip joint; Z87.891 Personal history of nicotine dependence; Z80.8 Family history of malignant neoplasm of other organs or systems; Z80.9 Family history of malignant neoplasm, unspecified; Z83.3 Family history of diabetes mellitus; Z82.61 Family history of arthritis; Z82.49 Family history of ischemic heart disease and other diseases of the circulatory system; Z79.82 Long term (current) use of aspirin; Z79.890 Hormone replacement therapy; Z79.899 Other long term (current) drug therapy; Z91.040 Latex allergy status; Z88.0 Allergy status to penicillin; Z91.013 Allergy to seafood; Z88.8 Allergy status to other drugs, medicaments and biological substances; Z91.018 Allergy to other foods; Z91.048 Other nonmedicinal substance allergy status; Z91.09 Other allergy status, other than to drugs and biological substances
CPT/HCPCS: 52356; 82365; 74420; 74018; C2625; C1758; C1769; J2250; J1100; J0690; J2405; J2001; J3010; J0330; J2704; J1170; Q9967; 93005

== ENCOUNTER → 2021-05-15 | Outpatient (CLI) | payer MEDICARE ==
[2021-05-16 03:19] LABS: Basophils # (A) 0.03 X 10*3/uL (0.00-0.10); Basophils % (A) 0.4 %; Eosinophils # (A) 0.11 X 10*3/uL (0.04-0.35); Eosinophils % (A) 1.6 %; HCT 42.8 % (37.2-46.3); HGB 13.5 g/dL (12.0-15.0); Lymphocytes # (A) 1.88 X 10*3/uL (0.90-5.00); Lymphocytes % (A) 27.3 %; MCH 29.4 pg (27.0-32.0); MCHC 31.5 g/dL (32.0-37.0); MCV 93.2 fL (80.0-97.0); Mean Platelet Volume 11.7 fL (9.5-12.2); Monocytes % (A) 5.8 %; Neutrophils # (A) 4.45 X 10*3/uL (1.80-7.70); Neutrophils % (A) 64.8 %; Platelet Count 327 X 10*3/uL (140-440); RBC 4.59 X 10*6/uL (4.10-5.20); RDW 13.6 % (11.5-14.5); WBC 6.88 X 10*3/uL (4.50-10.00)
[2021-05-16 05:31] LABS: Soybean IgE <0.10 kU/L
== END | disposition home or self-care (01) ==
LOC: LABWHC1 10:55
PROVIDERS: ATTEND Internal Medicine
DX: R53.83 Other fatigue (principal)
CPT/HCPCS: 36415; 82784; 85025; 86003

== ENCOUNTER 2024-04-03 12:03 | Day surgery (SDC) | payer MEDICARE ==
[2024-03-30 14:58] VITALS: BMI 30.7
--- NOTE | 2024-04-03 08:20 | P.HPIHPCON ---
History of Present Illness H&P Date: 04/03/24 Chief Complaint: Right-sided renal stones This is a 68-year-old female with history of a 1 cm right-sided lower pole stone, she is having recurrent UTIs requiring multiple antibiotic therapy. Was evaluated by infectious disease which advised to address the stone as this could potentially be the source of her UTI. Discussed potential that the stone could be colonized and this could be the source of her recurrent UTI. But discussed even with stone removal she might still have persistent UTI. Option of right- sided ureteroscopy with holmium laser was discussed in details, aware the risk which includes but not limited to bleeding, infection, injury to the ureter. Discussed also given her previous history of recurrent UTIs she is at a high risk of open UTI postoperatively. She is currently on antibiotics for her UTI Consent for Procedure: I have explained the operation/procedure to the patient, including the risks, benefits, side effects, alternative therapies (including not receiving the proposed treatment or service), the likelihood of the patient achieving his/her goals, and potential recuperation problems for the procedure/sedation/analgesia, as well as any blood products, if indicated. I also explained to the patient the risks, benefits and side effects of the alternatives, as well as the risks related to not receiving the proposed procedure, care, treatment, or services. 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 Last Myocardial Infarction Date:: 2005 History of Any Multi-Drug Resistant Organisms: MRSA Date of last positivie culture/infection: 04/12/2015 MDRO Source:: Right Thigh Past Surgical History: Adenoidectomy, Appendectomy, Bariatric Surgery, Cholecystectomy, Hernia Repair, Hysterectomy, Joint Replacement, Tonsillectomy Additional Past Surgical History / Comment(s): partial right kidney removed 2011, hernia x 3, Bilateral knee replacement, kyree hip replacement, partial removal of small intestine 1980s-wt loss, kyree carpal tunnel, kidney stone removed from left kidney, COLONOSCOPY 08/28/20 Past Anesthesia/Blood Transfusion Reactions: Motion Sickness, Postoperative Nausea & Vomiting (PONV) Additional Past Anesthesia/Blood Transfusion Reaction / Comment(s): no hx blood transfusion Smoking Status: Former smoker - Past Family History Son(s) Family Medical History: Cancer Additional Family Medical History / Comment(s): thyroid CA Sister(s) Family Medical History: Cancer, Deep Vein Thrombosis (DVT) Additional Family Medical History / Comment(s): thyroid CA Father Family Medical History: Cancer, Coronary Artery Disease (CAD) Additional Family Medical History / Comment(s): colon. CABG Mother Family Medical History: Congestive Heart Failure (CHF), Diabetes Mellitus, Rheumatoid Arthritis (RA) Additional Family Medical History / Comment(s): bilateral knee replacements, back surgery, Medications and Allergies Home Medications Medication Instructions Recorded Confirmed Type RX: Levothyroxine Sodium 200 mcg PO QAM 04/12/15 03/30/24 History [Synthroid] RX: Aspirin 81 mg PO DAILY 01/25/19 03/30/24 History RX: Multivitamins, Thera 1 tab PO DAILY 01/25/19 03/30/24 History [Multivitamin (formulary)] lisinopriL [Zestril] 2.5 mg PO HS 01/15/21 03/30/24 History Acetaminophen/Codeine Liquid 15 ml PO BID PRN 03/30/24 03/30/24 History [Tylenol w/codeine Elixir] Albuterol Inhaler [Ventolin Hfa 1 - 2 puff INHALATION Q6H PRN 03/30/24 03/30/24 History Inhaler] Calcium,Vit D,Magnesium Elixir 1 dose PO DAILY 03/30/24 03/30/24 History EPINEPHrine (Auto Inject) [Epipen] 0.3 mg IM ONCE PRN 03/30/24 03/30/24 History Estradiol Cream [Estrace Cream 1 gm VAGINAL MOFR 03/30/24 03/30/24 History 0.01%] Ibuprofen [Children's Ibuprofen] 5 - 10 ml PO BID PRN 03/30/24 03/30/24 History L.acidoph,Paracasei, B.lactis 1 each PO DAILY 03/30/24 03/30/24 History [Probiotic] Mometasone Furoate [Nasonex 24Hr 1 spray NASAL DAILY 03/30/24 03/30/24 History Allergy] Ondansetron [Zofran] 4 mg PO BID PRN 03/30/24 03/30/24 History RX: Nystatin 100,000Unit/gm Cream 1 dose TOPICAL DAILY PRN 03/30/24 03/30/24 History [Mycostatin Cream] RX: cephALEXin [cephALEXin Oral 5 ml PO BID 03/30/24 03/30/24 History Susp] Sustane Lubricant Eye Drop 1 drop BOTH EYES BID PRN 03/30/24 03/30/24 History diphenhydrAMINE HCL [Children's 12.5 mg PO DAILY PRN 03/30/24 03/30/24 History Benadryl Allergy] Allergies Allergy/AdvReac Type Severity Reaction Status Date / Time adhesive tape Allergy blisters Verified 03/30/24 13:51 Iodine and Iodide Containing Allergy Anaphylaxis Verified 03/30/24 13:51 Produc latex Allergy Rash/Hives Verified 03/30/24 13:51 shellfish derived [Shellfish] Allergy Anaphylaxis Verified 03/30/24 13:51 soy Allergy severe Verified 03/30/24 13:51 headache,"can't function" Fish Containing Products AdvReac headache Verified 03/30/24 13:51 magnesium AdvReac Headache Verified 03/30/24 13:51 Penicillins AdvReac Nausea & Verified 03/30/24 13:51 Vomiting & Diarrhea bandaid Allergy blisters Uncoded 03/30/24 13:51 Surgical - Exam - General well nourished, no distress, no pain - ENT normal nares, normal mucosa, no hearing loss - Respiratory normal expansion, normal respiratory effort - Abdomen Abdomen: soft, non tender Assessment and Plan Assessment: OR for right-sided ureteroscopy, homing laser lithotripsy, stone basketing and stent insertion
[~2024-04-03 12:03] MED LIST changes: -DEXAMETHASONE SOD PHOSPHATE 4 MG/ML 1 ML VIAL IV ONE; -LACTATED RINGERS 1,000 ML IV SCH; +LIDOCAINE 1% (10MG/ML) FOR IV START INTRADERMA PRN; -MIDAZOLAM 2 MG/2 ML VIAL IV PRN; -ONDANSETRON 4 MG/2 ML VIAL IVP ONE
--- NOTE | 2024-04-03 12:54 | XR ---
EXAMINATION TYPE: XR KUB DATE OF EXAM: 04/03/2024 Comparison: 01/19/2021 Clinical History: 68-year-old female kidney stones Findings: Suture material along the mid abdomen. Cholecystectomy clips. 7 mm and adjacent 3 mm right renal calc brit. Right-sided pelvic phlebolith. Mild to moderate stool burden. Nonobstructive bowel gas pattern. Partially visualized bilateral total hip arthroplasties. Degenerative change lower lumbar spine. Impression: A couple right-sided renal calculi are suggested measuring up to 7 mm.
[2024-04-03] MEDS: LACTATED RINGERS 1,000 ML IV SCH (13:10)
[2024-04-03 13:13] LABS: Glucose,Whole Blood 83 mg/dL (70-110)
[2024-04-03] MEDS: DEXAMETHASONE SOD PHOSPHATE 4 MG/ML 1 ML VIAL IVP ONE (13:15)
[2024-04-03] MEDS: FAMOTIDINE 20 MG/2 ML VIAL IVP ONE (13:15)
[2024-04-03] MEDS: ONDANSETRON 4 MG/2 ML VIAL IVP ONE ×2 (13:15→15:31)
[2024-04-03] MEDS: GENTAMICIN 120 MG in SODIUM CHLORIDE 0.9% 100 ML IVPB PRN (13:24)
[2024-04-03] MEDS: fentaNYL (PF) 50 MCG/1 ML VIAL IVP ONE (13:24)
[2024-04-03 13:31] LABS: Basophils # (A) 0.1 k/uL (0-0.2); Basophils % (A) 1 %; Eosinophils # (A) 0.1 k/uL (0-0.7); Eosinophils % (A) 1 %; HCT 40.6 % (34.0-46.0); HGB 13.1 gm/dL (11.4-16.0); Lymphocytes % (A) 25 %; MCH 28.6 pg (25.0-35.0); MCHC 32.3 g/dL (31.0-37.0); MCV 88.5 fL (80.0-100.0); Mean Platelet Volume 7.9; Monocytes # (A) 0.3 k/uL (0-1.0); Monocytes % (A) 3 %; Neutrophils # (A) 5.3 k/uL (1.3-7.7); Neutrophils % (A) 68 %; Platelet Count 257 k/uL (150-450); RBC 4.59 m/uL (3.80-5.40); RDW 12.9 % (11.5-15.5); WBC 7.9 k/uL (3.8-10.6)
[2024-04-03 13:48] LABS: African American GFR (CKD) >90 (>60 ml/min/1.73 sqM); Anion Gap 4 mmol/L; Blood Urea Nitrogen 9 mg/dL (7-17); Calcium 9.9 mg/dL (8.4-10.2); Carbon Dioxide 31 mmol/L (22-30); Chloride 106 mmol/L (98-107); Glucose 89 mg/dL (74-99); Non-African American GFR(CKD) >90 (>60 ml/min/1.73 sqM); Potassium 5.2 mmol/L (3.5-5.1); Sodium 141 mmol/L (137-145)
[2024-04-03] MEDS ORDERED: SUCCINYLCHOLINE CHLORIDE 200 MG/10 ML VIAL IV ONE (14:28)
[2024-04-03] MEDS ORDERED: MIDAZOLAM 2 MG/2 ML VIAL ONE (14:28)
[2024-04-03] MEDS ORDERED: LIDOCAINE 1% INJ 10MG/ML (20 ML MDV) ONE (14:28)
[2024-04-03] MEDS ORDERED: PROPOFOL 10 MG/ML 20 ML VIAL IV ONE (14:28)
[2024-04-03] MEDS ORDERED: fentaNYL (PF) 50 MCG/ML 2 ML AMP ONE (14:28)
--- NOTE | 2024-04-03 15:39 | P.OP ---
Date of Procedure: 04/03/24 Preoperative Diagnosis: Right renal stone Postoperative Diagnosis: Same Procedure(s) Performed: Cystoscopy, right ureteroscopy, laser lithotripsy, stone basketing and stent insertion Implants: 6 [place] by 22 cm stent in the right ureter Anesthesia: RAQUEL Surgeon: Derek Cerda Estimated Blood Loss (ml): 5 Pathology: other (right renal stone) Condition: stable Disposition: PACU Indications for Procedure: This is a 68-year-old female with history of a 1 cm right-sided lower pole stone, she is having recurrent UTIs requiring multiple antibiotic therapy. Was evaluated by infectious disease which advised to address the stone as this could potentially be the source of her UTI. Discussed potential that the stone could be colonized and this could be the source of her recurrent UTI. But discussed even with stone removal she might still have persistent UTI. Option of right- sided ureteroscopy with holmium laser was discussed in details, aware the risk which includes but not limited to bleeding, infection, injury to the ureter. Discussed also given her previous history of recurrent UTIs she is at a high risk of open UTI postoperatively. She is currently on antibiotics for her UTI Operative Findings: 2 stones in the midpole calyx of the kidney Description of Procedure: Patient brought to the operating room, general anesthesia was induced. She was prepped and draped in sterile fashion and placed in dorsolithotomy position. Cystoscopy fitted with 21 Azerbaij[place] sheath was inserted per urethra, cystoscopy was performed showed no abnormality within the bladder. Attention was then carried to the right ureteral orifice which was intubated with a sensor wire. Next under fluoroscopy 1113 [place] access sheath was passed over the wire and into the proximal ureter. The flexible ureteroscope was inserted through the access sheath, of note patient's proximal ureter was quite torturous, I was able to navigate the scope past the tortuosity of the proximal ureter and into the kidney, renoscopy was performed showed 2 large stones in the midpole. Using the holmium laser the stones were dusted, decision was made to dust the stones given the tortuosity of the proximal ureter rather than fragmented. Repeat renoscopy showed no sizable fragments or injury to the kidney, on fluoroscopy there was no radiopaque densities visualized, all fragments were smaller than the diameter of the wire. Limited basketing was performed of the some of the fragments in order to analyze the stone. At this time pullback ureteroscopy was performed which showed no ureteral stones or injury to the ureter as ureteroscope was withdrawn a sensor wire was advanced through. Next ureteral stent was passed over the wire, the proximal curl was visualized on fluoroscopy and the distal curl was visualized using the cystoscope. The bladder was emptied at the end of the case. Patient tolerated procedure was taken recovery in stable condition
[2024-04-03 15:42] VITALS: TEMP 97
[2024-04-03] MEDS: HYDROmorphone 0.5 MG/0.5 ML SYRINGE IVP PRN (15:44)
--- NOTE | 2024-04-03 15:44 | FL ---
EXAMINATION TYPE: FL guidance operating room DATE OF EXAM: 04/03/2024 FLUOROSCOPY RT SIDE CYSTO AND STENT PLACEMENT. FL TIME 3.4 SECONDS. DAP [id number] [id number]. 2 images sent into PACS. Carla Cerda
[2024-04-03 16:07] LABS: Glucose,Whole Blood 91 mg/dL (70-110)
[2024-04-03 16:34] VITALS: RESP 16
[2024-04-03 17:25] VITALS: BP 176/78; PULSE 60
== END 2024-04-03 17:06 | disposition home or self-care (01) ==
LOC: OR 12:03
PROVIDERS: ATTEND Urology
DX: N20.0 Calculus of kidney (principal); I25.2 Old myocardial infarction; K21.9 Gastro-esophageal reflux disease without esophagitis; E07.9 Disorder of thyroid, unspecified; M19.90 Unspecified osteoarthritis, unspecified site; Z85.528 Personal history of other malignant neoplasm of kidney; Z87.891 Personal history of nicotine dependence; Z88.0 Allergy status to penicillin; Z88.1 Allergy status to other antibiotic agents; Z88.8 Allergy status to other drugs, medicaments and biological substances; Z90.49 Acquired absence of other specified parts of digestive tract; Z91.041 Radiographic dye allergy status; Z91.040 Latex allergy status; Z79.890 Hormone replacement therapy
CPT/HCPCS: 52356; 80048; 85025; 82365; 74018; C2625; C1769; J2250; J0330; J1100; J0690; J2405; J2001; J3010 ×2; J1580; J3490; J2704; J1170

== ENCOUNTER → 2024-11-05 | Outpatient (CLI) | payer MEDICARE ==
--- NOTE | 2024-11-11 23:32 | MR ---
EXAMINATION TYPE: MR elbow RT wo con DATE OF EXAM: 11/05/2024 COMPARISON: None available HISTORY: Right elbow pain and swelling x4-5 months, No injury, Hx Osteoporosis, Lateral Epicondylitis . Marker placed on area of pain TECHNIQUE: Multiplanar, multisequence images of the right elbow were acquired without contrast. FINDINGS: BONES/JOINTS: Bone marrow signal is normal. Joint spaces are maintained. Articular cartilage is reyes l. No joint effusion. LIGAMENTS: The medial ligamentous structures, including the ulnar collateral ligament, are intact. La teral ligamentous structures are intact. TENDONS: The distal biceps tendon and brachialis tendon are intact. Distal triceps tendon is intact. The common extensor tendon demonstrates mild intrasubstance increased signal and small enthesophytes are present, most consistent with chronic tendinitis.. The common flexor tendon demonstrates increase d intrasubstance signal and overlying soft tissue edema, most consistent with common flexor tendiniti s. NEUROVASCULAR: Normal neurovascular structures. Cubital tunnel is normal. SOFT TISSUES: Normal variant anconeus epitrochlearis muscle. IMPRESSION: 1. Findings most consistent with common flexor tendinitis. 2. Chronic extensor tendinitis. [facility], Workstation: [employer], 11/11/2024 11:30 PM
== END | disposition home or self-care (01) ==
LOC: RADMRIMAIN 14:08
PROVIDERS: ATTEND Orthopaedic Surgery
DX: M77.11 Lateral epicondylitis, right elbow (principal); M77.8 Other enthesopathies, not elsewhere classified